=== PATIENT | female | born 1940 | race African-American/Black ===

== ENCOUNTER 2017-12-09 09:45 | Observation (INO) | payer OTHER ==
--- NOTE | 2017-12-09 10:24 | PDOC ---
History of Present Illness - General History Source: Patient Exam Limitations: No Limitations - History of Present Illness Initial Comments: 12/09/17 13:38 The patient is a 77 year old female with past medical history of hypertension, NIDDM, and hypothyroidism who presents to the ED with complaints of right sided pleuritic chest pain that began 6 days ago. The patient states that last Wednesday she had felt light headed all day and experienced a syncopal episode in her apartment elevator after grocery shopping that night. She reports waking up on the floor, half of her body inside the elevator. The neighbors reported that she was unconscious for 12 minutes and had defecated on herself. After getting up, she subsequently vomited. Denies head strike or any injury. That night she developed a right sided chest pain that has been constant since a/w SOB. She reports that the pain is sharp and is worse with deep inspiration. The patient denies any other syncopal episodes since then and denies any bilateral lower extremity swelling. The patient denies any recent illness, fevers, or chills. PCP: Malcom Rich <Alysha Parks - Last Filed: 12/09/17 15:03> <Yelena Kunz - Last Filed: 12/09/17 15:27> - General Chief Complaint: Injury Stated Complaint: BREAST PAIN, INJURY Time Seen by Provider: 12/09/17 10:09 Past History <Alysha Parks - Last Filed: 12/09/17 15:03> - Past Medical History COPD: No Diabetes: Yes (DM non insulin dependent) HTN: Yes Thyroid Disease: Yes - Surgical History Abdominal Surgery: Yes (hiatal hernia repair 2014) - Immunization History Immunization Up to Date: Yes - Suicide/Smoking/Psychosocial Hx Smoking History: Former smoker Have you smoked in the past 12 months: No If you are a former smoker, when did you quit?: 2005 Information on smoking cessation initiated: No Hx Alcohol Use: No Drug/Substance Use Hx: No Substance Use Type: None Hx Substance Use Treatment: No <Yelena Kunz - Last Filed: 12/09/17 15:27> - Past Medical History Allergies/Adverse Reactions: Allergies Allergy/AdvReac Type Severity Reaction Status Date / Time Penicillins Allergy Unknown Verified 12/09/17 09:57 Sulfa (Sulfonamide Allergy Unknown Verified 12/09/17 09:57 Antibiotics) latex Allergy Verified 12/09/17 09:57 tuberculin test Allergy Uncoded 12/09/17 09:57 Home Medications: Ambulatory Orders Amlodipine Besylate [Norvasc -] 10 mg PO DAILY 12/09/17 Benazepril HCl [LOTENSIN (Nf)] 0 mg PO DAILY 12/09/17 Levothyroxine [Synthroid -] 0 mcg PO DAILY 12/09/17 Metformin HCl [Metformin HCl ER] 1,000 mg PO BID 12/09/17 Omeprazole 40 mg PO DAILY 12/09/17 Ranitidine HCl 0 mg PO DAILY 12/09/17 Review of Systems - Review of Systems Able to Perform ROS?: Yes Comments:: 12/09/17 13:38 GENERAL/CONSTITUTIONAL: No fever or chills. No weakness. HEAD, EYES, EARS, NOSE AND THROAT: No change in vision. No ear pain or discharge. No sore throat. GASTROINTESTINAL: Present: nausea, vomiting No diarrhea or constipation. GENITOURINARY: No dysuria, frequency, or change in urination. CARDIOVASCULAR: Present: chest pain No shortness of breath. RESPIRATORY: No cough, wheezing, or hemoptysis. MUSCULOSKELETAL: No joint or muscle swelling or pain. No neck or back pain. SKIN: No rash NEUROLOGIC: Present: syncope No headache, vertigo, or change in strength/sensation. ENDOCRINE: No increased thirst. No abnormal weight change. HEMATOLOGIC/LYMPHATIC: No anemia, easy bleeding, or history of blood clots. ALLERGIC/IMMUNOLOGIC: No hives or skin allergy. All Other Systems: Reviewed and Negative <Alysha Parks - Last Filed: 12/09/17 15:03> *Physical Exam - Vital Signs Last Vital Signs Temp Pulse Resp BP Pulse Ox 98 F 90 18 137/80 99 12/09/17 09:53 12/09/17 09:53 12/09/17 09:53 12/09/17 09:53 12/09/17 09:53 - Physical Exam Comments: 12/09/17 13:39 GENERAL: Awake, alert, and fully oriented, in no acute distress HEAD: No signs of trauma EYES: PERRLA, EOMI, sclera anicteric, conjunctiva clear ENT: Auricles normal inspection, hearing grossly normal, nares patent, oropharynx clear without exudates. Moist mucosa NECK: Normal ROM, supple, no lymphadenopathy, JVD, or masses LUNGS: Breath sounds equal, clear to auscultation bilaterally. No wheezes, and no crackles HEART: Regular rate and rhythm, normal S1 and S2, no murmurs, rubs or gallops ABDOMEN: Soft, nontender, normoactive bowel sounds. No guarding, no rebound. No masses EXTREMITIES: Normal range of motion, no edema. No clubbing or cyanosis. No cords, erythema, or tenderness BACK: No midline spinal tenderness in cervical/thoracic/lumbar region NEUROLOGICAL: Normal speech, cranial nerves intact, negative pronator drift, 5/ 5 strength in all 4 extremities, normal sensation to light touch in all 4 extremities, normal cerebellar exam, normal gait, normal reflexes and tone SKIN: Warm, Dry, normal turgor, no rashes or lesions noted. <Alysha Parks - Last Filed: 12/09/17 15:03> - Vital Signs Last Vital Signs Temp Pulse Resp BP Pulse Ox 98 F 90 18 137/80 99 12/09/17 09:53 12/09/17 09:53 12/09/17 09:53 12/09/17 09:53 12/09/17 09:53 <Yelena Kunz - Last Filed: 12/09/17 15:27> Heart Score/ECG Review #1 12/09/17 15:21 Twelve-lead EKG was performed and reviewed by me. Normal sinus rhythm, rate 86. Normal axis and intervals. No ST elevations. No T-wave inversions <Yelena Kunz - Last Filed: 12/09/17 15:27> ED Treatment Course - LABORATORY CBC & Chemistry Diagram: 12/09/17 10:45 12/09/17 10:45 - ADDITIONAL ORDERS Additional order review: Laboratory Results 12/09/17 12/09/17 12/09/17 10:45 10:45 10:45 PT with INR Cancelled INR Cancelled PTT (Actin FS) Sodium Potassium Chloride Carbon Dioxide Anion Gap BUN Creatinine Creat Clearance w eGFR Random Glucose Calcium Magnesium Cancelled Total Bilirubin AST ALT Alkaline Phosphatase Troponin I Cancelled B-Natriuretic Peptide Cancelled Total Protein Albumin TSH Cancelled 12/09/17 12/09/17 10:45 10:45 PT with INR 11.30 INR 1.00 PTT (Actin FS) 29.4 Sodium 139 Potassium 3.9 Chloride 105 Carbon Dioxide 25 Anion Gap 9 BUN 15 Creatinine 1.0 Creat Clearance w eGFR 53.76 Random Glucose 134 H Calcium 9.0 Magnesium 1.4 L Total Bilirubin 0.2 AST 22 ALT 38 Alkaline Phosphatase 114 Troponin I 0.03 B-Natriuretic Peptide 47.79 Total Protein 7.9 Albumin 4.0 TSH 2.12 12/09/17 10:45 RBC 4.62 MCV 61.7 L MCHC 29.6 L RDW 19.6 H D MPV 8.8 Neutrophils % 72.6 D Lymphocytes % 16.9 D Monocytes % 8.6 Eosinophils % 1.2 Basophils % 0.7 - RADIOLOGY Radiograph Interpretation: 12/09/17 14:57 Chest X-ray as reviewed by Dr. Erickson reports no acute lung infiltrate, minimal bibasilar atelectatic changes, prominent right paratracheal stripe likely due to tortuous vessels Chest CTA as reviewed by Dr. Palma reports no definite evidence of pulmonary embolism, mild to moderate centrilobular emphysema, minimal to moderate right lower lobe interstital thickening, and thyromegaly <Alysha Parks - Last Filed: 12/09/17 15:03> - LABORATORY CBC & Chemistry Diagram: 12/09/17 10:45 12/09/17 10:45 <Yelena Kunz - Last Filed: 12/09/17 15:27> Medical Decision Making - Medical Decision Making 12/09/17 15:04 Microblog sent to [facility], awaiting for call back <Alysha Parks - Last Filed: 12/09/17 15:03> - Medical Decision Making 12/09/17 10:30 77yo F hx HTN, DM, hypothyroid presents with 2 episodes of syncope 6 days ago and progressive dyspnea and pleuritic R sided CP since. Vitals wnl. Exam wnl. DDx includes PE vs ACS vs arrhythmia. Wells score moderate. Plan: -labs -CTA -CXR -likely admit 12/09/17 15:15 CTA negative for pulmonary embolism. Troponin negative. Will admit patient for cardiac workup. Case discussed with nurse practitioner Shannen, patient accepted for admission to telemetry obs under Dr. Feliciano. Case discussed in detail with admitting physician including history, physical exam and ancillary studies. Admitting physician has assumed care for the patient, will follow all pending diagnostics and will complete the evaluation and treatment. <Yelena Kunz - Last Filed: 12/09/17 15:27> *DC/Admit/Observation/Transfer - Attestations Scribe Attestion: 12/09/17 13:39 Documentation prepared by Alysha Parks, acting as biomedical service engineer for Yelena Kunz MD. <Alysha Parks - Last Filed: 12/09/17 15:03> - Discharge Dispostion Admit: Yes - Attestations Physician Attestion: 12/09/17 15:20 I, Dr. Yelena Kunz MD, attest that this document has been prepared under my direction and personally reviewed by me in its entirety. I further attest, that it accurately reflects all work, treatment, procedures and medical decision -making performed by me. <Yelena Kunz - Last Filed: 12/09/17 15:27> Diagnosis at time of Disposition: Chest pain - Discharge Dispostion Condition at time of disposition: Stable - Referrals Referrals: Malcom Chong MD [Primary Care Provider] -
[2017-12-09 11:19] LABS: BASO % 0.7 % (0-2.0); EOS % 1.2 % (0-4.5); HEMATOCRIT 28.5 % (32.4-45.2); HEMOGLOBIN 8.4 GM/dL (10.7-15.3); LYMPH % 16.9 % (8-40); MCHC 29.6 g/dl (32.0-36.0); MEAN CELL VOLUME 61.7 fl (80-96); MEAN PLT VOLUME 8.8 fl (7.5-11.1); MONO % 8.6 % (3.8-10.2); NEUT % 72.6 % (42.8-82.8); PLATELET COUNT 303 K/MM3 (134-434); RBC 4.62 M/mm3 (3.60-5.2); RDW 19.6 % (11.6-15.6); WHITE BLOOD COUNT 9.8 K/mm3 (4.0-10.0)
[2017-12-09 11:29] LABS: ANION GAP 9 (8-16); BLOOD UREA NITROGEN 15 mg/dL (7-18); CHLORIDE 105 mmol/L (98-107); CO2 25 mmol/L (21-32); GLUCOSE,RANDOM 134 mg/dL (74-106); MAGNESIUM 1.4 mg/dL (1.8-2.4); POTASSIUM 3.9 mmol/L (3.5-5.1); SGOT/AST 22 U/L (15-37); SGPT/ALT 38 U/L (12-78); SODIUM 139 mmol/L (136-145)
[2017-12-09 11:30] LABS: MCH 18.2 pg (25.7-33.7); PROTHROMBIN TIME (PATIENT) 11.3 SEC (9.98-11.88)
[2017-12-09 11:32] LABS: ACTIVATED PTT 29.4 SECONDS (26.9-34.4)
[2017-12-09 11:38] LABS: ALK PHOS 114 U/L (45-117); BILIRUBIN,TOTAL 0.2 mg/dL (0.2-1.0); N-TERMINAL BNP 47.79 pg/ml (5-450); TOT PROT 7.9 g/dl (6.4-8.2)
[2017-12-09] MEDS ORDERED: ASPIRIN 325 MG TABLET PO ONE (14:57)
[2017-12-09] MEDS ORDERED: ASPIRIN 325 MG TABLET ONE (15:14)
[2017-12-09] MEDS ORDERED: MAGNESIUM OXIDE 400 MG TABLET (FP) PO ONE (15:24)
[2017-12-09] MEDS ORDERED: MAGNESIUM OXIDE 400 MG TABLET (FP) ONE (15:37)
--- NOTE | 2017-12-09 16:21 | EKG ---
Test Reason : Blood Pressure : / mmHG Vent. Rate : 086 BPM Atrial Rate : 086 BPM P-R Int : 154 ms QRS Dur : 084 ms QT Int : 374 ms P-R-T Axes : 059 020 041 degrees QTc Int : 447 ms NORMAL SINUS RHYTHM NORMAL ECG WHEN COMPARED WITH ECG OF 27-JUL-2013 03:09, NONSPECIFIC T WAVE ABNORMALITY NOW EVIDENT IN ANTERIOR LEADS Confirmed by LAUREN MONTOYA MD ([id number]) on 12/09/2017 4:21:33 PM Referred By: Confirmed By:ALUREN MONTOYA MD
--- NOTE | 2017-12-09 16:47 | HP ---
CHIEF COMPLAINT: Right sided chest pain after syncopal episode PCP: Dr. Chong HISTORY OF PRESENT ILLNESS: This is a 77 year old female with PMHx of DM, hypothyroidism, HTN, who presented to the ED with right sided chest pain after syncopal episode on Wednesday. The patient reports on Wednesday she was walking home from the grocery store and lost consciousness while in the elevator for approximately 12 minutes. When she awoke she noticed that she had lost bowel control. The episode was unwitnessed. She then states she lost consciousness again and then when she awoke she vomited. She states that there was no confusion once she woke up. She states in the past she has had near syncopal episode but has never lost consciousness. She states that the right sided chest pain is because she thinks the elevator door closed on her chest while she was passed out. She states the chest pain is worse with breathing and that when you touch her sternum it is painful. She denies any palpitations, dizziness, headache, dysuria , urgency, frequency, lower extremity swelling, shortness of breath. ER course was notable for: (1) Temp 98, pulse 90, BP 137/80, pulse 18, O2 99% on RA (2) Chest CTA with no definite evidence of PE. Centrilobular emphysema. Minimal to mild right lower lobe interstitial thickening. Thyroidmegaly (3) Chest X-ray with no acute lung infiltrate, minimal bibasilar atelectatic changes. Prominent right paratracheal stripe (4) Hgb 8.4, Mg 1.4 Recent Travel: denies PAST MEDICAL HISTORY: as above PAST SURGICAL HISTORY: hiatal hernia repair 2.5 years ago Social History: Smoking: denies Alcohol: denies Drugs: denies Family History: Allergies Penicillins Allergy (Unknown, Verified 12/09/17 09:57) Sulfa (Sulfonamide Antibiotics) Allergy (Unknown, Verified 12/09/17 09:57) latex Allergy (Verified 12/09/17 09:57) tuberculin test Allergy (Uncoded 12/09/17 09:57) HOME MEDICATIONS: Home Medications Medication Instructions Recorded Amlodipine Besylate [Norvasc -] 10 mg PO DAILY 12/09/17 Benazepril HCl [LOTENSIN (Nf)] 0 mg PO DAILY 12/09/17 Levothyroxine [Synthroid -] 0 mcg PO DAILY 12/09/17 Metformin HCl [Metformin HCl ER] 1,000 mg PO BID 12/09/17 Omeprazole 40 mg PO DAILY 12/09/17 Ranitidine HCl 0 mg PO DAILY 12/09/17 REVIEW OF SYSTEMS CONSTITUTIONAL: Absent: fever, chills, diaphoresis, generalized weakness, malaise, loss of appetite, weight change HEENT: Absent: rhinorrhea, nasal congestion, throat pain, throat swelling, difficulty swallowing, mouth swelling, ear pain, eye pain, visual changes CARDIOVASCULAR: Right sided chest pain. Loss of consciousness on Wednesday with loss of bowel continence. Unwitnessed LOC lasting approximately 12 minutes. Absent: chest pain, palpitations, irregular heart rate, peripheral edema RESPIRATORY: Absent: cough, shortness of breath, dyspnea with exertion, orthopnea, wheezing, stridor, hemoptysis GASTROINTESTINAL: Absent: abdominal pain, abdominal distension, nausea, vomiting, diarrhea, constipation, melena, hematochezia GENITOURINARY: Absent: dysuria, frequency, urgency, hesitancy, hematuria, flank pain, genital pain MUSCULOSKELETAL: Absent: myalgia, arthralgia, joint swelling, back pain, neck pain SKIN: Absent: rash, itching, pallor HEMATOLOGIC/IMMUNOLOGIC: Absent: easy bleeding, easy bruising, lymphadenopathy, frequent infections ENDOCRINE: Absent: unexplained weight gain, unexplained weight loss, heat intolerance, cold intolerance NEUROLOGIC: Absent: headache, focal weakness or paresthesias, dizziness, unsteady gait, seizure, mental status changes, bladder or bowel incontinence PSYCHIATRIC: Absent: anxiety, depression, suicidal or homicidal ideation, hallucinations. PHYSICAL EXAMINATION Vital Signs - 24 hr 12/09/17 12/09/17 09:53 14:38 Temperature 98 F Pulse Rate 90 Pulse Rate [ 98 H Apical] Respiratory 18 18 Rate Blood Pressure 137/80 Blood Pressure 129/73 [Right Arm] O2 Sat by Pulse 99 98 Oximetry (%) GENERAL: Awake, alert, and fully oriented, in no acute distress. HEAD: Normal with no signs of trauma. EYES: Pupils equal, round and reactive to light, extraocular movements intact, sclera anicteric, conjunctiva clear. No lid lag. EARS, NOSE, THROAT: Ears normal, nares patent, oropharynx clear without exudates. Moist mucous membranes. NECK: Normal range of motion, supple without lymphadenopathy, JVD, or masses. LUNGS: Breath sounds equal, clear to auscultation bilaterally. No wheezes, and no crackles. No accessory muscle use. HEART: Regular rate and rhythm, normal S1 and S2 without murmur, rub or gallop. ABDOMEN: Soft, nontender, not distended, normoactive bowel sounds, no guarding, no rebound, no masses. No hepatomegaly or splenomegaly. MUSCULOSKELETAL: Normal range of motion at all joints. No bony deformities or tenderness. No CVA tenderness. UPPER EXTREMITIES: 2+ pulses, warm, well-perfused. No cyanosis. No clubbing. No peripheral edema. LOWER EXTREMITIES: 2+ pulses, warm, well-perfused. No calf tenderness. No peripheral edema. NEUROLOGICAL: Cranial nerves II-XII intact. Normal speech. PSYCHIATRIC: Cooperative. Good eye contact. Appropriate mood and affect. SKIN: Warm, dry, normal turgor, no rashes or lesions noted, normal capillary refill. Laboratory Results - last 24 hr 12/09/17 12/09/17 12/09/17 10:45 10:45 10:45 WBC 9.8 D RBC 4.62 Hgb 8.4 L D Hct 28.5 L D MCV 61.7 L MCH 18.2 L MCHC 29.6 L RDW 19.6 H D Plt Count 303 MPV 8.8 Neutrophils % 72.6 D Lymphocytes % 16.9 D Monocytes % 8.6 Eosinophils % 1.2 Basophils % 0.7 PT with INR 11.30 INR 1.00 PTT (Actin FS) 29.4 Sodium 139 Potassium 3.9 Chloride 105 Carbon Dioxide 25 Anion Gap 9 BUN 15 Creatinine 1.0 Creat Clearance w eGFR 53.76 Random Glucose 134 H Calcium 9.0 Magnesium 1.4 L Total Bilirubin 0.2 AST 22 ALT 38 Alkaline Phosphatase 114 Troponin I 0.03 B-Natriuretic Peptide 47.79 Total Protein 7.9 Albumin 4.0 TSH 2.12 12/09/17 12/09/17 12/09/17 10:45 10:45 10:45 WBC RBC Hgb Hct MCV MCH MCHC RDW Plt Count MPV Neutrophils % Lymphocytes % Monocytes % Eosinophils % Basophils % PT with INR Cancelled INR Cancelled PTT (Actin FS) Sodium Potassium Chloride Carbon Dioxide Anion Gap BUN Creatinine Creat Clearance w eGFR Random Glucose Calcium Magnesium Cancelled Total Bilirubin AST ALT Alkaline Phosphatase Troponin I Cancelled B-Natriuretic Peptide Cancelled Total Protein Albumin TSH Cancelled Assessment: This is a 77 year old female with PMHx of DM, hypothyroidism, HTN, who presented to the ED with right sided chest pain after syncopal episode on Wednesday. Plan: 1) Loss of consciousness - Patient reports it was approximately 12 minutes and was unwitnessed. No prodrome or post ictal state. Bowel incontinence occurred - Cardiac monitoring - F/u ECHO - F/u carotid dopplers - F/u orthostatics - Head CT vs. MRI, will defer to neurology - F/u cardiology consult 2) Atypical right sided chest pain - Follow trops to r/o ACS - EKG reviewed - F/u lipid panel 3) Hypothyroidism - F/u TSH - Need to verify dosing 4) DM - BGM ACHS - ISS ACHS 5) HTN - Continue Norvasc 6) F/E/N: - Diabetic, sodium controlled diet - Monitor electrolytes 7) Prophylaxis: - OOB ambulating - SCDs bilaterally 8) Dispo: - Once condition improves CODE STATUS: FULL CODE Visit type - Emergency Visit Emergency Visit: Yes ED Registration Date: 12/09/17 Care time: The patient presented to the Emergency Department on the above date and was hospitalized for further evaluation of their emergent condition. - New Patient This patient is new to me today: Yes Date on this admission: 12/09/17 - Critical Care Critical Care patient: No Hospitalist Screening - Colonoscopy Questionnaire Colonoscopy Questionnaire: Colonoscopy Questionnaire - Patient: 50 - 75 years old and never had a screening colonoscopy: Unknown History of colon or rectal polyps, or CA: Unknown History of IBD, Crohn's disease or UC: Unknown History of abdominal radiation therapy as a child: Unknown - Relative: 1 with colon or rectal CA, or polyps at age 60 or younger: Unknown Colon or rectal CA diagnosed at age 45 or younger: Unknown Multiple relatives with colon or rectal CA: Unknown - Outcome: Screening Result: Negative Screen
--- NOTE | 2017-12-09 17:52 | CON.CARD ---
Cardiology Consult (text) - Consultation Consultation Note: CC syncope/cp 77 yo with h/o hypertension, NIDDM, and hypothyroidism who p/w right sided CP after an episode of syncope last week. States she intermittently has sx's of lightheadedness but has never passed out. 1 week ago she felt lightheaded all day and had to rest most of the day. In the evening she finally felt well enough to go to the supermarket. Once there she had worsening of dizziness. On arriving home and moving her groceries into the elevator she had severe lightheadedness and passed out falling half way out of the elevator. She states that the elevator door closed on the right side of her torso and since then she has had worsening pain on the right side. Prior to the day of her syncope she was in her usual state of health. After the syncope she broke out into a sweat and vomited. Since then she has not had a recurrence of lightheadedness. Her lightheadedness was associated with sob, but no other symptoms. She does not check her bp's at home. She endorses chronic leong with walking 20 feet, stable over the past year. She states her leong started a few years ago after her hernia repair surgery. No orthopnea, pnd, palps, le edema, claudication, bleeding no fevers, chills, diarrhea, cough, congestion, rash, visual distubances. Hospital course notable for new anemia and magensium of 1.4. pmhx/pshx: per hpi family hx: son with hx of rheumatic fever c/b valvular disease. social hx: former smoker, no etoh ros: per hpi Ambulatory Orders Amlodipine Besylate [Norvasc -] 10 mg PO DAILY 12/09/17 Benazepril HCl [LOTENSIN (Nf)] 0 mg PO DAILY 12/09/17 Levothyroxine [Synthroid -] 0 mcg PO DAILY 12/09/17 Metformin HCl [Metformin HCl ER] 1,000 mg PO BID 12/09/17 Omeprazole 40 mg PO DAILY 12/09/17 Ranitidine HCl 0 mg PO DAILY 12/09/17 Current Medications Amlodipine Besylate (Norvasc -) 10 mg PO DAILY KATHIE Insulin Aspart (Novolog Vial Sliding Scale -) 1 vial SQ ACHS [facility] PRN Reason: Protocol Vital Signs - 24 hr 12/09/17 12/09/17 09:53 14:38 Temperature 98 F Pulse Rate 90 Pulse Rate [ 98 H Apical] Respiratory 18 18 Rate Blood Pressure 137/80 Blood Pressure 129/73 [Right Arm] O2 Sat by Pulse 99 98 Oximetry (%) Intake & Output 12/07/17 12/08/17 12/09/17 12/10/17 07:59 07:59 07:59 07:59 Weight 175 lb nad, calm jvd flat, neck supple ctab, nl effort + ttp of right lower chest wall/rib cage. rrr nl s1, s2 no mrg + bs soft nt nd ext without e/c/c + dp/pt aaox3 no jaundice, diaphoresis. CBC, BMP 12/09/17 10:45 12/09/17 10:45 Laboratory Tests 12/09/17 12/09/17 10:45 10:45 INR 1.00 Troponin I 0.03 ekg: wnl cta: No PE proximally. + centrilobular emphysema (mild-moderate). minimal RLL interstitial thickening 77 yo with h/o hypertension, NIDDM, and hypothyroidism who p/w right sided CP after an episode of syncope last week. right sided cp - likely msk after injury to that area from fall/elevator door. Further eval/ mgm't per pmd syncope - tele monitoring - con't leeanna - echo and stress testing. - carotid u/s - tsh - orthostatic vitals - bp well controlled so far off norvasc, will hold for now. consider resuming at lower dose after stress testing if needed. htn - as above.
[2017-12-09 20:54] LABS: URINE APPEARANCE CLEAR; URINE BILIRUBIN NEGATIVE (<2.0 mg/dL); URINE BLOOD NEGATIVE (NEGATIVE); URINE COLOR LTYELLOW; URINE GLUCOSE (UA) NEGATIVE (NEGATIVE); URINE KETONE NEGATIVE (NEGATIVE); URINE NITRITE POSITIVE (NEGATIVE); URINE PROTEIN NEGATIVE (NEGATIVE); URINE UROBILINOGEN NEGATIVE mg/dL (0.2-1.0)
[2017-12-09 21:00] LABS: URINE LEUK ESTERASE 2+ (NEGATIVE)
[2017-12-09 21:05] LABS: EPI CELLS RARE /HPF (FEW); URINE MUCUS RARE
[2017-12-09] MEDS ORDERED: INSULIN (NOVOLOG) ASPART 100 UNITS/ML 10ML VIAL ONE (21:13)
[2017-12-09] MEDS: INSULIN SLIDING SCALE (NOVOLOG) 1 VIAL SQ SCH (21:56)
[2017-12-09] MEDS ORDERED: MAGNESIUM SULF 50% (8.12 MEQ/2 ML-1 GM VIAL) IVPB ONE (22:00)
[2017-12-10 01:04] VITALS: BMI 32.6
[2017-12-10 07:01] LABS: HEMATOCRIT 28.4 % (32.4-45.2); HEMOGLOBIN 8.6 GM/dL (10.7-15.3); MCHC 30.1 g/dl (32.0-36.0); MEAN CELL VOLUME 61.8 fl (80-96); MEAN PLT VOLUME 8.8 fl (7.5-11.1); PLATELET COUNT 337 K/MM3 (134-434); RDW 19.2 % (11.6-15.6); WHITE BLOOD COUNT 8.3 K/mm3 (4.0-10.0)
[2017-12-10 07:10] LABS: ANION GAP 10 (8-16); BLOOD UREA NITROGEN 15 mg/dL (7-18); CALCIUM 9.3 mg/dL (8.5-10.1); CHLORIDE 104 mmol/L (98-107); CO2 25 mmol/L (21-32); CREATININE 0.8 mg/dL (0.55-1.02); GLUCOSE,RANDOM 174 mg/dL (74-106); POTASSIUM 4.3 mmol/L (3.5-5.1); SGOT/AST 24 U/L (15-37); SGPT/ALT 37 U/L (12-78); SODIUM 139 mmol/L (136-145)
[2017-12-10 07:13] LABS: ALK PHOS 113 U/L (45-117); BILIRUBIN,TOTAL 0.2 mg/dL (0.2-1.0); TOT PROT 7.7 g/dl (6.4-8.2)
[2017-12-10 07:24] LABS: ADD RBC MORPHOLOGY YES; MCH 18.6 pg (25.7-33.7)
[2017-12-10 07:30] LABS: ANISOCYTOSIS 1+
[2017-12-10] MEDS ORDERED: REGADENOSON 0.4 MG/5 ML PRE-FILLED SYRINGE IVPUSH ONE ×2 (09:15→12:45)
[2017-12-10] MEDS ORDERED: amLODIPine BESYLATE 10 MG TABLET (FP) PO SCH (10:00)
[2017-12-10] MEDS: INSULIN SLIDING SCALE (NOVOLOG) 1 VIAL SQ SCH ×4 (11:16→21:03)
--- NOTE | 2017-12-10 13:35 | PN ---
Progress Note (short form) - Note Progress Note: Subjective: The patient was seen and examined at the bedside, she has no complaints at this time Current Medications Generic Name Dose Route Start Last Admin Trade Name Kylie PRN Reason Stop Dose Admin Insulin Aspart 1 vial 12/09/17 22:00 12/10/17 11:16 Novolog Vial Sliding Scale - SQ Not Given ACHS KATHIE Protocol Objective: Vital Signs Period Temp Pulse Resp BP Sys/Garza Pulse Ox Last 24 Hr 97.9 F-98.7 F 78-98 16-22 126-150/68-91 94-98 Physical Exam: General: NAD, A&Ox3 Lungs: CTA bilaterally Heart: RRR, S1S2 Abd: Soft, non-tender, non-distended Ext: Warm, well-perfused 2+ DP/PT bilaterally Neuro: No focal deficits CBCD WBC 8.3 K/mm3 (4.0-10.0) 12/10/17 06:15 RBC 4.60 M/mm3 (3.60-5.2) 12/10/17 06:15 Hgb 8.6 GM/dL (10.7-15.3) L 12/10/17 06:15 Hct 28.4 % (32.4-45.2) L 12/10/17 06:15 MCV 61.8 fl (80-96) L 12/10/17 06:15 MCHC 30.1 g/dl (32.0-36.0) L 12/10/17 06:15 RDW 19.2 % (11.6-15.6) H 12/10/17 06:15 Plt Count 337 K/MM3 (134-434) 12/10/17 06:15 MPV 8.8 fl (7.5-11.1) 12/10/17 06:15 CMP Sodium 139 mmol/L (136-145) 12/10/17 06:15 Potassium 4.3 mmol/L (3.5-5.1) 12/10/17 06:15 Chloride 104 mmol/L (98-107) 12/10/17 06:15 Carbon Dioxide 25 mmol/L (21-32) 12/10/17 06:15 Anion Gap 10 (8-16) 12/10/17 06:15 BUN 15 mg/dL (7-18) 12/10/17 06:15 Creatinine 0.8 mg/dL (0.55-1.02) 12/10/17 06:15 Creat Clearance w eGFR > 60 (>60) 12/10/17 06:15 Random Glucose 174 mg/dL (74-106) H 12/10/17 06:15 Calcium 9.3 mg/dL (8.5-10.1) 12/10/17 06:15 Total Bilirubin 0.2 mg/dL (0.2-1.0) 12/10/17 06:15 AST 24 U/L (15-37) 12/10/17 06:15 ALT 37 U/L (12-78) 12/10/17 06:15 Alkaline Phosphatase 113 U/L (45-117) 12/10/17 06:15 Total Protein 7.7 g/dl (6.4-8.2) 12/10/17 06:15 Albumin 4.0 g/dl (3.4-5.0) 12/10/17 06:15 CARDIAC ENZYMES Creatine Kinase 86 IU/L (26-192) 12/10/17 06:15 Troponin I 0.02 ng/ml (0.00-0.05) 12/10/17 06:15 Assessment: This is a 77 year old female with PMHx of DM, hypothyroidism, HTN, who presented to the ED with right sided chest pain after syncopal episode on Wednesday. Plan: 1) Loss of consciousness - Patient reports it was approximately 12 minutes and was unwitnessed. No prodrome or post ictal state. Bowel incontinence occurred - Cardiac monitoring - F/u ECHO - F/u stress test - Carotid dopplers: There is mild intimal thickening in the distal common carotid artery and at the bifurcation, bilaterally. Small plaques at the left common carotid bifucation and bulb without evidence of hemodynamically significant stenosis, bilaterally - F/u orthostatics - Head CT vs. MRI, will defer to neurology - Appreciate cardiology consult 2) Atypical right sided chest pain - Trop x4 negative - EKG reviewed - Lipid panel reviewed 3) Anemia - Spoke to Dr. Chong's office, patient's Hgb baseline since 2017 was ~9 - F/u iron studies - F/u stool for occult blood 3) Hypothyroidism - TSH 4 - Patient cannot recall dosing or pharmacy. Awaiting call back from Dr. Chong's office 4) DM - BGM ACHS - ISS ACHS 5) HTN - Continue Norvasc 6) F/E/N: - Diabetic, sodium controlled diet - Monitor electrolytes 7) Prophylaxis: - OOB ambulating - SCDs bilaterally 8) Dispo: - Once condition improves CODE STATUS: FULL CODE Visit type - Emergency Visit Emergency Visit: Yes ED Registration Date: 12/09/17 Care time: The patient presented to the Emergency Department on the above date and was hospitalized for further evaluation of their emergent condition. - New Patient This patient is new to me today: No - Critical Care Critical Care patient: No
--- NOTE | 2017-12-10 15:30 | PN ---
Progress Note (short form) - Note Progress Note: CC syncope/cp S: had stress test and echo today. no recurrence of dizziness. no cp, palps, dizziness. Current Medications Insulin Aspart (Novolog Vial Sliding Scale -) 1 vial SQ ACHS KATHIE PRN Reason: Protocol Last Admin: 12/10/17 11:16 Dose: Not Given Vital Signs - 24 hr 12/09/17 12/09/17 12/09/17 17:30 18:50 20:46 Temperature 98.7 F Pulse Rate 78 Pulse Rate [ 92 H Apical] Pulse Rate [ Left side Sitting] Pulse Rate [ Left side Standing] Pulse Rate [ Left side Supine] Respiratory 16 22 Rate Blood Pressure 150/78 Blood Pressure [Left side Sitting] Blood Pressure [Left side Standing] Blood Pressure [Left side Supine] Blood Pressure 137/68 [Right Arm] O2 Sat by Pulse 96 94 L Oximetry (%) 12/09/17 12/09/17 12/09/17 20:54 20:55 20:56 Temperature 98.6 F 98.6 F Pulse Rate 87 87 Pulse Rate [ Apical] Pulse Rate [ Left side Sitting] Pulse Rate [ Left side Standing] Pulse Rate [ Left side Supine] Respiratory 18 18 18 Rate Blood Pressure 126/70 126/70 Blood Pressure [Left side Sitting] Blood Pressure [Left side Standing] Blood Pressure [Left side Supine] Blood Pressure [Right Arm] O2 Sat by Pulse 94 L Oximetry (%) 12/10/17 12/10/17 12/10/17 02:00 05:21 08:00 Temperature 98.3 F 98.1 F Pulse Rate 87 88 Pulse Rate [ Apical] Pulse Rate [ Left side Sitting] Pulse Rate [ Left side Standing] Pulse Rate [ Left side Supine] Respiratory 18 18 16 Rate Blood Pressure 130/72 139/70 Blood Pressure [Left side Sitting] Blood Pressure [Left side Standing] Blood Pressure [Left side Supine] Blood Pressure [Right Arm] O2 Sat by Pulse 95 Oximetry (%) 12/10/17 12/10/17 08:27 14:34 Temperature 97.9 F Pulse Rate 83 Pulse Rate [ Apical] Pulse Rate [ 99 H Left side Sitting] Pulse Rate [ 100 H Left side Standing] Pulse Rate [ 96 H Left side Supine] Respiratory 16 Rate Blood Pressure 126/91 Blood Pressure 132/74 [Left side Sitting] Blood Pressure 130/77 [Left side Standing] Blood Pressure 129/79 [Left side Supine] Blood Pressure [Right Arm] O2 Sat by Pulse Oximetry (%) Intake & Output 12/08/17 12/09/17 12/10/17 12/11/17 07:59 07:59 07:59 07:59 Intake Total 470 Balance 470 Weight 178 lb 6 oz nad, calm jvd flat, neck supple ctab, nl effort + ttp of right lower chest wall/rib cage. rrr nl s1, s2 no mrg + bs soft nt nd ext without e/c/c + dp/pt aaox3 no jaundice, diaphoresis. CBC, BMP 12/10/17 06:15 12/10/17 06:15 Laboratory Tests 12/09/17 12/09/17 12/10/17 22:00 22:00 06:15 Magnesium Total Bilirubin 0.2 AST 24 ALT 37 Alkaline Phosphatase 113 Creatine Kinase 79 Troponin I 0.03 0.02 Albumin 4.0 Triglycerides Cholesterol Total LDL Cholesterol HDL Cholesterol TSH 12/10/17 12/10/17 12/10/17 06:15 06:15 06:15 Magnesium 2.0 Total Bilirubin AST ALT Alkaline Phosphatase Creatine Kinase 86 Troponin I 0.02 Albumin Triglycerides 98 Cholesterol 125 Total LDL Cholesterol 76 HDL Cholesterol 43 TSH 4.06 H ekg: wnl tele: sr javier stress 12/2017: no ekg changes. moderate sized mild intensity ischemia in the inferior wall. EF 80%. echo 12/2017: nl lv/rv size/fn. basal septal hypertrophy. (no mention of LVOT obstruction). E/A reversal. 1+ mr/tr. carotid u/s: small plaque, no stenosis. nl verts cta: No PE proximally. + centrilobular emphysema (mild-moderate). minimal RLL interstitial thickening ASSESSMENT/PLAN 77 yo with h/o hypertension, NIDDM, and hypothyroidism who p/w right sided CP after an episode of syncope last week. right sided cp - likely msk after injury to that area from fall/elevator door. Further eval/ mgm't per pmd syncope - tele monitoring - trop neg x 3. ekg without ischemic changes. Echo with nl systolic function. - stress testing demonstrated moderate sized area of mild ischemia in the inferior wall. To cause syncope, would typically need more high risk/extensive ischemia than demonstrated. In light of low suspicion and new anemia, would further clarify etiology of anemia prior to pursuing cardiac catheterization. Would start low dose asa. LDL close to goal at 76. statin resumed at low dose since statin not originally listed on home med list, but patient states today that she was on simvastatin 40 mg/day. Will increase atorvastatin dose to atorvastatin 20. - carotid u/s unremarkable. neuro c/s pending. - tsh mildly elevated. - orthostatic vitals negative. - sbp 150's during stress, but otherwise overall well controlled off norvasc. HR's elevated. Will start metoprolol instead of prior outpatient norvasc. monitor for worsened sob/bronchospasm on toprol. htn - as above. - additionally, patient states she was also on benazepril 40 mg/day as outpatient. will resume low dose ACEI tomorrow.
[2017-12-10] MEDS: metoPROLOL SUCCINATE 25 MG TAB.SR.24H (FP) PO SCH (17:00)
[2017-12-10] MEDS ORDERED: ATORVASTATIN CA 10 MG TABLET (FP) PO SCH (22:00)
[2017-12-11] MEDS: INSULIN SLIDING SCALE (NOVOLOG) 1 VIAL SQ SCH ×4 (06:31→21:58)
[2017-12-11] MEDS: ASPIRIN 81 MG CHEWABLE TABLETS PO SCH (09:20)
[2017-12-11] MEDS: metoPROLOL SUCCINATE 25 MG TAB.SR.24H (FP) PO SCH ×2 (09:20→21:58)
--- NOTE | 2017-12-11 15:19 | CONSULT ---
Consult - text type - Consultation Consultation Note: NEUROLOGY CONSULTATION is greatly appreciated: This 77 yo RH div. woman lives alone. Her son lives nearby. PMH sig for DM (>10 yrs), HTN, hypothroidism and anemia. Maintained on amlodipine, benazapril, L-thyroxin, metformin, omeprazole, ranitidine, and atorvastatin. 8 days ago (last Wednesday), patient took her AM meds but felt unwell with waxing and waning lightheadedness, weakness and nausea. She has felt this way, episodically, in the past. She did not feel well enought to eat lunch or dinner. In the evening she felt a little better and went food shopping. In the grocery store she had recurrent dizziness, blurred vision and began to sweat. She drove home but symptoms worsened and she "prayed she would make it." In the elevator dizziness and sweating worsened and she loss consciousness. Witnesses found her seizing, half in and half out of the elevator with the door opening and closing repeatedly on her right chest. Incontinent of feces. LOC x > 10 mins. Her son was called and Pt was taken to sit on a step where dizziness and sweating again worsened +/- recurrent syncope. She felt a little better and eating and sleeping. However, since then, she has had right chest pains. Carotid duplex dopplers: scattered calcifications without sig. stenosis. CT of head not done. CT angio of chest - for PE. C XRay - for rib fracture. SHANTANU:: No evidence of head trauma. No bruits. Cor reg. On telemetry. NEURO: MS/speech: Normal CN II-XII: normal without nystagmus. Motor: No drift or tremor. Normal strength, tone, buld and reflexes. Toes downgoing. Coord: No FTN dystaxia Sensory normal. Romberg neg Gait: Normal. IMP: Normal Neurological Exam. Seizure due to Toxic-metabolic encephalopathy. Etology most likely prolonged hypoglycemia. SUGGEST: Agree with telemetry and cardiology evaluation as outlined. Check orthostatic BP's. Diabetes education for home BG Monitoring (Pt does NOT do). Neuro f/u and EEG as out patient. Would observe off AED's at the time. Thank you very much, Enoc Galdamez MD
--- NOTE | 2017-12-11 16:07 | PN ---
Progress Note (short form) - Note Progress Note: C syncope/cp S: no recurrence of dizziness. no cp, palps, dizziness. metoprolol started yesterday. Current Medications Aspirin (Asa -) 81 mg PO DAILY [facility] Last Admin: 12/11/17 09:20 Dose: 81 mg Atorvastatin Calcium (Lipitor -) 20 mg PO HS [facility] Insulin Aspart (Novolog Vial Sliding Scale -) 1 vial SQ ACHS [facility] PRN Reason: Protocol Last Admin: 12/11/17 11:00 Dose: Not Given Lisinopril (Prinivil) 5 mg PO DAILY [facility] Metoprolol Succinate (Toprol Xl -) 25 mg PO BID [facility] Vital Signs - 24 hr 12/10/17 12/10/17 12/11/17 18:00 19:49 02:00 Temperature 98.3 F 98.3 F 98.2 F Pulse Rate 90 90 82 Respiratory 18 18 20 Rate Blood Pressure 132/60 150/77 148/74 O2 Sat by Pulse 95 Oximetry (%) 12/11/17 12/11/17 12/11/17 05:06 10:00 14:00 Temperature 98.2 F 98 F 99.6 F Pulse Rate 81 84 89 Respiratory 18 20 20 Rate Blood Pressure 147/86 135/80 144/72 O2 Sat by Pulse Oximetry (%) Intake & Output 12/09/17 12/10/17 12/11/17 12/12/17 07:59 07:59 07:59 07:59 Intake Total 470 10 Balance 470 10 Weight 178 lb 6 oz nad, calm jvd flat, neck supple ctab, nl effort + ttp of right lower chest wall/rib cage. rrr nl s1, s2 no mrg + bs soft nt nd ext without e/c/c + dp/pt aaox3 no jaundice, diaphoresis. no CBC, BMP today 12/10/17 06:15 12/10/17 06:15 Microbiology 12/09/17 20:00 Urine - Urine Clean Catch Urine Culture - Preliminary Lactose Fermenting Neg Bacilli Laboratory Tests 12/09/17 12/10/17 10:45 06:15 TSH 2.12 4.06 H ekg: wnl tele: sr javier stress 12/2017: no ekg changes. moderate sized mild intensity ischemia in the inferior wall. EF 80%. echo 12/2017: nl lv/rv size/fn. basal septal hypertrophy. (no mention of LVOT obstruction). E/A reversal. 1+ mr/tr. carotid u/s: small plaque, no stenosis. nl verts cta: No PE proximally. + centrilobular emphysema (mild-moderate). minimal RLL interstitial thickening ASSESSMENT/PLAN 77 yo with h/o hypertension, hl, NIDDM, and hypothyroidism who p/w right sided CP after an episode of syncope last week. right sided cp - likely msk after injury to that area from fall/elevator door. Further eval/ mgm't per pmd syncope/cad - tele monitoring - trop neg x 3. ekg without ischemic changes. Echo with nl systolic function. - stress testing demonstrated moderate sized area of mild ischemia in the inferior wall. To cause syncope, would typically need more high risk/extensive ischemia than demonstrated. In light of low suspicion and new anemia, would further clarify etiology of anemia prior to pursuing cardiac catheterization. Started low dose asa here. LDL close to goal at 76. Patient was on simvastatin 40 mg/day as outpatient. No simva on formulary, started atorvastatin 20 here. Started toprol here as mentioned below, uptitrate to goal HR 60s-70s (will increase to 25 bid). - carotid u/s unremarkable. neuro c/s appreciated - tsh as above. infectious work up per pmd. - orthostatic vitals negative. htn - on norvasc as outpatient. HR's elevated. Started metoprolol here instead of prior outpatient norvasc. monitor for worsened sob/bronchospasm on toprol. - additionally, patient states she was also on benazepril 40 mg/day as outpatient (not on formulary). resumed lisinopril 5 mg/day today, uptitrate as needed.
--- NOTE | 2017-12-11 16:11 | PN ---
Physical Exam: SUBJECTIVE: Patient seen and examined at the bedside. Denies chest pain or shortness of breath. OBJECTIVE: Vital Signs Period Temp Pulse Resp BP Sys/Garza Pulse Ox Last 24 Hr 98 F-99.6 F 81-90 18-20 132-150/60-86 95 GENERAL: The patient is awake, alert, and fully oriented, in no acute distress. HEAD: Normal with no signs of trauma. EYES: PERRL, extraocular movements intact, sclera anicteric, conjunctiva clear. No ptosis. ENT: Ears normal, nares patent, oropharynx clear without exudates, moist mucous membranes. NECK: Trachea midline, full range of motion, supple. LUNGS: Breath sounds equal, diminished/clear bilaterally ABDOMEN: Soft, nontender, nondistended, normoactive bowel sounds, no guarding EXTREMITIES: no edema. NEUROLOGICAL: Normal speech, gait not observed. PSYCH: Normal mood, normal affect. SKIN: Warm, dry, normal turgor, no rashes or lesions noted Laboratory Results - last 24 hr 12/10/17 12/10/17 12/11/17 17:02 21:00 05:00 POC Glucometer 289 200 Ferritin 6.714 L 12/11/17 12/11/17 05:04 11:08 POC Glucometer 156 185 Ferritin Active Medications Generic Name Dose Route Start Last Admin Trade Name Freq PRN Reason Stop Dose Admin Aspirin 81 mg 12/11/17 10:00 12/11/17 09:20 Asa - PO 81 mg DAILY KATHIE Administration Atorvastatin Calcium 20 mg 12/11/17 22:00 Lipitor - PO HS [facility] Insulin Aspart 1 vial 12/09/17 22:00 12/11/17 11:00 Novolog Vial Sliding Scale - SQ Not Given [facility] Protocol Lisinopril 5 mg 12/11/17 16:15 Prinivil PO DAILY [facility] Metoprolol Succinate 25 mg 12/11/17 22:00 Toprol Xl - PO BID [facility] ASSESSMENT/PLAN: Patient is a 77 year old female with a significant past medical history of diabetes mellitus (on Metformin), hypothyroidism and hypertension. She presents to the ED on 12/09/17 with chest pain after a syncopal episode. As per admitting notes, pt had a syncopal episode with LOC accompanied by loss of bowel continence. She developed CP after an elevator door reportedly hit her chest when she passed out. Neuro: Syncope/with reported loss of consciousness Echo Stress test Carotid dopplers shows mild intimal thickening in the distal common carotid artery and at the bifurcation, bilaterally. Small plaques at the left common carotid bifucation and bulb without evidence of hemodynamically significant stenosis, bilaterally Not orthostatics EEG as an outpatient as per neuro (Dr. Galdamez) Card: Chest pain, resolved Trops negative : UTI Started on Levaquin 500mg for 7 days f/u repeat UC with PCP Heme Iron studies pending Microcytic Anemia hmg low from reported baseline Endo: Hypothyroidism TSH mildly elevated, will confirm dose with her PCP Diabetes, will need glucometer for suspected hypoglycemic episodes at home Card: Hypertension: On Toprol XL 25mg, BID, Lisinopril 5mg daily On ASA 81mg F.E.N. Fluids: PO adequate Electrolytes: monitor Nutrition: low salt diet Prophy: DVT: SCDs, GI: Zantac Full code Visit type - Emergency Visit Emergency Visit: Yes ED Registration Date: 12/09/17 Care time: The patient presented to the Emergency Department on the above date and was hospitalized for further evaluation of their emergent condition. - New Patient This patient is new to me today: Yes Date on this admission: 12/12/17 - Critical Care Critical Care patient: No - Discharge Referral Referred to [facility] Med P.C.: No
[2017-12-11] MEDS: LISINOPRIL 5 MG TABLET (FP) PO SCH (17:43)
[2017-12-11] MEDS ORDERED: RANITIDINE HCL 150 MG TABLET (FP) PO ONE (21:00)
[2017-12-11] MEDS: ATORVASTATIN CA 10 MG TABLET (FP) PO SCH (21:58)
[2017-12-11] MEDS: RANITIDINE HCL 150 MG TABLET (FP) PO SCH (22:04)
[2017-12-12] MEDS: INSULIN SLIDING SCALE (NOVOLOG) 1 VIAL SQ SCH ×4 (07:02→21:00)
[2017-12-12 08:04] LABS: ANION GAP 7 (8-16); BLOOD UREA NITROGEN 13 mg/dL (7-18); CALCIUM 8.9 mg/dL (8.5-10.1); CHLORIDE 105 mmol/L (98-107); CO2 26 mmol/L (21-32); CREATININE 0.7 mg/dL (0.55-1.02); GLUCOSE,RANDOM 177 mg/dL (74-106); POTASSIUM 3.7 mmol/L (3.5-5.1); SODIUM 138 mmol/L (136-145)
[2017-12-12 08:08] LABS: SERUM IRON SATURATION 4 % (15-55); TOTAL IRON BINDING CAPACITY 378 ug/dL (250-450); TRANSFERRIN 315 mg/dL (200-370); UIBC 361 ug/dL (118-369)
[2017-12-12 08:20] LABS: BASO % 1.5 % (0-2.0); EOS % 2.7 % (0-4.5); HEMATOCRIT 25.7 % (32.4-45.2); HEMOGLOBIN 7.5 GM/dL (10.7-15.3); MCHC 29.3 g/dl (32.0-36.0); MEAN CELL VOLUME 62.2 fl (80-96); MEAN PLT VOLUME 8.5 fl (7.5-11.1); MONO % 9.7 % (3.8-10.2); NEUT % 64.1 % (42.8-82.8); PLATELET COUNT 262 K/MM3 (134-434); RBC 4.14 M/mm3 (3.60-5.2); RDW 19.6 % (11.6-15.6); WHITE BLOOD COUNT 6.7 K/mm3 (4.0-10.0)
[2017-12-12 08:21] LABS: ALBUMIN 3.7 g/dl (3.4-5.0); ALK PHOS 102 U/L (45-117); ANION GAP 7 (8-16); BILIRUBIN,TOTAL 0.1 mg/dL (0.2-1.0); BLOOD UREA NITROGEN 13 mg/dL (7-18); CALCIUM 8.8 mg/dL (8.5-10.1); CHLORIDE 107 mmol/L (98-107); CO2 27 mmol/L (21-32); CREATININE 0.6 mg/dL (0.55-1.02); GLUCOSE,RANDOM 141 mg/dL (74-106); POTASSIUM 4.2 mmol/L (3.5-5.1); SGOT/AST 25 U/L (15-37); SGPT/ALT 37 U/L (12-78); SODIUM 141 mmol/L (136-145); TOT PROT 7.1 g/dl (6.4-8.2)
[2017-12-12 08:36] LABS: MCH 18.2 pg (25.7-33.7)
[2017-12-12] MEDS: RANITIDINE HCL 150 MG TABLET (FP) PO SCH ×2 (09:20→21:00)
[2017-12-12] MEDS: LISINOPRIL 5 MG TABLET (FP) PO SCH (09:20)
[2017-12-12] MEDS: metoPROLOL SUCCINATE 25 MG TAB.SR.24H (FP) PO SCH ×2 (09:20→20:59)
[2017-12-12] MEDS: ASPIRIN 81 MG CHEWABLE TABLETS PO SCH (09:20)
[2017-12-12] MEDS ORDERED: RANITIDINE HCL 150 MG TABLET (FP) PO SCH (10:00)
[2017-12-12] MEDS ORDERED: IRON SUCROSE INJECTION 100 MG in SODIUM CHLORIDE 95 ML IVPB ONE (10:45)
--- NOTE | 2017-12-12 11:19 | PN ---
Progress Note (short form) - Note Progress Note: C syncope/cp S: no recurrence of dizziness. no cp, palps, dizziness. Current Medications Generic Name Dose Route Start Last Admin Trade Name Kylie PRN Reason Stop Dose Admin Aspirin 81 mg 12/11/17 10:00 12/12/17 09:20 Asa - PO 81 mg DAILY KATHIE Administration Atorvastatin Calcium 20 mg 12/11/17 22:00 12/11/17 21:58 Lipitor - PO 20 mg HS KATHIE Administration Insulin Aspart 1 vial 12/09/17 22:00 12/12/17 07:02 Novolog Vial Sliding Scale - SQ Not Given ACHS [facility] Protocol Levofloxacin 500 mg 12/11/17 18:00 12/12/17 09:20 Levaquin - PO 500 mg DAILY KATHIE Administration Lisinopril 5 mg 12/11/17 16:15 12/12/17 09:20 Prinivil PO 5 mg DAILY KATHIE Administration Metoprolol Succinate 25 mg 12/11/17 22:00 12/12/17 09:20 Toprol Xl - PO 25 mg BID KATHIE Administration Ranitidine HCl 150 mg 12/11/17 22:00 12/12/17 09:20 Zantac - PO 150 mg BID KATHIE Administration Vital Signs Period Temp Pulse Resp BP Sys/Garza Pulse Ox Last 24 Hr 97.2 F-99.6 F 76-90 20-20 144-172/72-86 96-97 nad, calm jvd flat, neck supple ctab, nl effort + ttp of right lower chest wall/rib cage. rrr nl s1, s2 no mrg + bs soft nt nd ext without e/c/c aaox3 no jaundice, diaphoresis. CBC, BMP 12/12/17 06:00 12/12/17 06:00 ekg: wnl tele: sr javier stress 12/2017: no ekg changes. moderate sized mild intensity ischemia in the inferior wall. EF 80%. echo 12/2017: nl lv/rv size/fn. basal septal hypertrophy. (no mention of LVOT obstruction). E/A reversal. 1+ mr/tr. carotid u/s: small plaque, no stenosis. nl verts cta: No PE proximally. + centrilobular emphysema (mild-moderate). minimal RLL interstitial thickening ASSESSMENT/PLAN 77 yo with h/o hypertension, hl, NIDDM, and hypothyroidism who p/w right sided CP after an episode of syncope last week. right sided cp - likely msk after injury to that area from fall/elevator door. Further eval/ mgm't per pmd syncope/cad - tele monitoring - trop neg x 3. ekg without ischemic changes. Echo with nl systolic function. - stress testing demonstrated moderate sized area of mild ischemia in the inferior wall. To cause syncope, would typically need more high risk/extensive ischemia than demonstrated. In light of low suspicion and new anemia, would further clarify etiology of anemia prior to pursuing cardiac catheterization. Started low dose asa here. LDL close to goal at 76. Patient was on simvastatin 40 mg/day as outpatient. No simva on formulary, started atorvastatin 20 here. Started toprol here as mentioned below, uptitrate to goal HR 60s-70s (will increase to 25 bid). - carotid u/s unremarkable. neuro c/s appreciated - tsh as above. infectious work up per pmd. - orthostatic vitals negative. htn - on norvasc as outpatient. HR's elevated. Started metoprolol here instead of prior outpatient norvasc. monitor for worsened sob/bronchospasm on toprol. - additionally, patient states she was also on benazepril 40 mg/day as outpatient (not on formulary). resumed lisinopril 5 mg/day today, uptitrate as needed. cardiac flowers stable for dc
--- NOTE | 2017-12-12 13:35 | PN ---
Physical Exam: SUBJECTIVE: Patient seen and examined at the bedside. Denies chest pain or shortness of breath. Refusing blood transfusion, agreeing with IV venofer infusions. OBJECTIVE: Vital Signs Period Temp Pulse Resp BP Sys/Garza Pulse Ox Last 24 Hr 97.2 F-99.6 F 76-90 20-20 144-172/72-86 96-97 GENERAL: The patient is awake, alert, and fully oriented, in no acute distress. HEAD: Normal with no signs of trauma. EYES: PERRL, extraocular movements intact, sclera anicteric, conjunctiva clear. No ptosis. ENT: Ears normal, nares patent, oropharynx clear without exudates, moist mucous membranes. NECK: Trachea midline, full range of motion, supple. LUNGS: Breath sounds equal, clear to auscultation bilaterally, no wheezes, no crackles, no accessory muscle use. HEART: Regular rate and rhythm, S1, S2 without murmur, rub or gallop. ABDOMEN: Soft, nontender, nondistended, normoactive bowel sounds, no guarding, no rebound, no hepatosplenomegaly, no masses. EXTREMITIES: 2+ pulses, warm, well-perfused, no edema. NEUROLOGICAL: Cranial nerves II through XII grossly intact. Normal speech, gait not observed. PSYCH: Normal mood, normal affect. SKIN: Warm, dry, normal turgor, no rashes or lesions noted Laboratory Results - last 24 hr 12/11/17 12/11/17 12/11/17 05:00 07:50 17:41 WBC RBC Hgb Hct MCV MCH MCHC RDW Plt Count MPV Neutrophils % Lymphocytes % Monocytes % Eosinophils % Basophils % Sodium 141 Potassium 4.2 Chloride 107 Carbon Dioxide 27 Anion Gap 7 L BUN 13 Creatinine 0.6 Creat Clearance w eGFR > 60 POC Glucometer 146 Random Glucose 141 H Calcium 8.8 Iron 17 L TIBC 378 Iron Saturation 4 L Transferrin 315 Total Bilirubin 0.1 L D AST 25 ALT 37 Alkaline Phosphatase 102 Total Protein 7.1 Albumin 3.7 12/11/17 12/12/17 12/12/17 21:18 06:00 06:00 WBC 6.7 RBC 4.14 Hgb 7.5 L D Hct 25.7 L MCV 62.2 L MCH 18.2 L MCHC 29.3 L RDW 19.6 H Plt Count 262 D MPV 8.5 Neutrophils % 64.1 Lymphocytes % 22.0 D Monocytes % 9.7 Eosinophils % 2.7 D Basophils % 1.5 Sodium 138 Potassium 3.7 Chloride 105 Carbon Dioxide 26 Anion Gap 7 L BUN 13 Creatinine 0.7 Creat Clearance w eGFR POC Glucometer 154 Random Glucose 177 H Calcium 8.9 Iron TIBC Iron Saturation Transferrin Total Bilirubin AST ALT Alkaline Phosphatase Total Protein Albumin 12/12/17 12/12/17 07:01 11:56 WBC RBC Hgb Hct MCV MCH MCHC RDW Plt Count MPV Neutrophils % Lymphocytes % Monocytes % Eosinophils % Basophils % Sodium Potassium Chloride Carbon Dioxide Anion Gap BUN Creatinine Creat Clearance w eGFR POC Glucometer 197 213 Random Glucose Calcium Iron TIBC Iron Saturation Transferrin Total Bilirubin AST ALT Alkaline Phosphatase Total Protein Albumin Active Medications Generic Name Dose Route Start Last Admin Trade Name Freq PRN Reason Stop Dose Admin Aspirin 81 mg 12/11/17 10:00 12/12/17 09:20 Asa - PO 81 mg DAILY KATHIE Administration Atorvastatin Calcium 20 mg 12/11/17 22:00 12/11/17 21:58 Lipitor - PO 20 mg HS KATHIE Administration Ferrous Sulfate 325 mg 12/12/17 22:00 Feosol - PO BID KATHIE Insulin Aspart 1 vial 12/09/17 22:00 12/12/17 11:57 Novolog Vial Sliding Scale - SQ Not Given ACHS [facility] Protocol Levofloxacin 500 mg 12/11/17 18:00 12/12/17 09:20 Levaquin - PO 500 mg DAILY KATHIE Administration Lisinopril 5 mg 12/11/17 16:15 12/12/17 09:20 Prinivil PO 5 mg DAILY KATHIE Administration Metoprolol Succinate 25 mg 12/11/17 22:00 12/12/17 09:20 Toprol Xl - PO 25 mg BID KATHIE Administration Ranitidine HCl 150 mg 12/11/17 22:00 12/12/17 09:20 Zantac - PO 150 mg BID KATHIE Administration ASSESSMENT/PLAN: Patient is a 77 year old female with a significant past medical history of diabetes mellitus (on Metformin), hypothyroidism and hypertension. She presents to the ED on 12/09/17 with chest pain after a syncopal episode. As per admitting notes, pt had a syncopal episode with LOC accompanied by loss of bowel continence. She developed CP after an elevator door reportedly hit her chest when she passed out. Neuro: Syncope/with reported loss of consciousness Echo with normal systolic function Stress test shows moderate sized area of mild ischemia in inferior wall. Card following, notes reviewed Pt to follow up outpatient once her hmg/hct are more stable for possible cardiac testing Started on Lipitor Carotid dopplers shows mild intimal thickening in the distal common carotid artery and at the bifurcation, bilaterally. Small plaques at the left common carotid bifucation and bulb without evidence of hemodynamically significant stenosis, bilaterally Not orthostatics EEG as an outpatient as per neuro (Dr. Galdamez) Patient to be sent home with glucometer Heme Microcytic Anemia hmg low from reported baseline Refusing blood transfusion 1 dose of IV venofer today, start on Ferritin PO Prior to d/c will need to scheduled IV venefor outpatient Card: Chest pain, resolved Trops negative Hypertension, chronic Started on metroprolol, was on Norvasc at home On Benazeril 40mg daily at home, NF here and Lisinopril started instead. : UTI Started on Levaquin 500mg for 7 days f/u repeat UC with PCP Endo: Hypothyroidism TSH mildly elevated, will confirm dose with her PCP Pt unsure of her dose amt, unsure of pharmacy Diabetes, will need glucometer for suspected hypoglycemic episodes at home F.E.N. Fluids: PO adequate Electrolytes: monitor Nutrition: low salt diet Prophy: DVT: SCDs, GI: Zantac Full code Visit type - Emergency Visit Emergency Visit: Yes ED Registration Date: 12/09/17 Care time: The patient presented to the Emergency Department on the above date and was hospitalized for further evaluation of their emergent condition. - New Patient This patient is new to me today: No - Critical Care Critical Care patient: No - Discharge Referral Referred to [facility] Med P.C.: No
[2017-12-12] MEDS: ATORVASTATIN CA 10 MG TABLET (FP) PO SCH (20:59)
[2017-12-12] MEDS ORDERED: FERROUS SO4 325 MG TABLET (FP) PO SCH (22:00)
[2017-12-13] MEDS ORDERED: IRON SUCROSE INJECTION 100 MG in SODIUM CHLORIDE 95 ML IVPB ONE (08:00)
[2017-12-13] MEDS: RANITIDINE HCL 150 MG TABLET (FP) PO SCH (09:02)
[2017-12-13] MEDS: ASPIRIN 81 MG CHEWABLE TABLETS PO SCH (09:02)
[2017-12-13] MEDS: metoPROLOL SUCCINATE 25 MG TAB.SR.24H (FP) PO SCH (09:02)
[2017-12-13] MEDS: LISINOPRIL 5 MG TABLET (FP) PO SCH (09:02)
[2017-12-13 09:49] LABS: EOS % 1.9 % (0-4.5); HEMATOCRIT 27.6 % (32.4-45.2); HEMOGLOBIN 8.1 GM/dL (10.7-15.3); LYMPH % 17.1 % (8-40); MCHC 29.2 g/dl (32.0-36.0); MEAN CELL VOLUME 62.2 fl (80-96); MEAN PLT VOLUME 8.2 fl (7.5-11.1); MONO % 10.2 % (3.8-10.2); NEUT % 69.8 % (42.8-82.8); PLATELET COUNT 267 K/MM3 (134-434); RBC 4.44 M/mm3 (3.60-5.2); RDW 19.9 % (11.6-15.6); WHITE BLOOD COUNT 7.6 K/mm3 (4.0-10.0)
[2017-12-13 09:50] LABS: MCH 18.2 pg (25.7-33.7)
[2017-12-13] MEDS: INSULIN SLIDING SCALE (NOVOLOG) 1 VIAL SQ SCH (12:41)
--- NOTE | 2017-12-13 13:50 | DS ---
Physical Exam: SUBJECTIVE: Patient seen and examined. Feels better today, wants to go home. OBJECTIVE: Vital Signs Period Temp Pulse Resp BP Sys/Garza Pulse Ox Last 24 Hr 97.3 F-98.3 F 79-96 18-22 109-153/49-90 97-98 PHYSICAL EXAM GENERAL: The patient is awake, alert, and fully oriented, in no acute distress. HEAD: Normal with no signs of trauma. EYES: PERRL, extraocular movements intact, sclera anicteric, conjunctiva clear. No ptosis. ENT: Ears normal, nares patent, oropharynx clear without exudates, moist mucous membranes. NECK: Trachea midline, full range of motion, supple. LUNGS: Breath sounds equal, clear to auscultation bilaterally, no wheezes, no crackles, no accessory muscle use. HEART: Regular rate and rhythm, S1, S2 without murmur, rub or gallop. ABDOMEN: Soft, nontender, nondistended, normoactive bowel sounds, no guarding, no rebound, no hepatosplenomegaly, no masses. EXTREMITIES: 2+ pulses, warm, well-perfused, no edema. NEUROLOGICAL: Cranial nerves II through XII grossly intact. Normal speech, gait not observed. PSYCH: Normal mood, normal affect. SKIN: Warm, dry, normal turgor, no rashes or lesions noted LABS Laboratory Results - last 24 hr 12/11/17 12/12/17 12/12/17 16:15 08:00 17:11 WBC RBC Hgb Hct MCV MCH MCHC RDW Plt Count MPV Neutrophils % Lymphocytes % Monocytes % Eosinophils % Basophils % POC Glucometer 143 Hemoglobin A1c % 8.7 H 8.4 H 12/12/17 12/13/17 12/13/17 20:58 05:22 09:40 WBC 7.6 RBC 4.44 Hgb 8.1 L Hct 27.6 L MCV 62.2 L MCH 18.2 L MCHC 29.2 L RDW 19.9 H Plt Count 267 MPV 8.2 Neutrophils % 69.8 Lymphocytes % 17.1 D Monocytes % 10.2 Eosinophils % 1.9 Basophils % 1.0 POC Glucometer 196 160 Hemoglobin A1c % 12/13/17 12:02 WBC RBC Hgb Hct MCV MCH MCHC RDW Plt Count MPV Neutrophils % Lymphocytes % Monocytes % Eosinophils % Basophils % POC Glucometer 178 Hemoglobin A1c % HOSPITAL COURSE: Date of Admission:12/09/17 Date of Discharge: 12/13/17 Patient is a 77 year old female with a significant past medical history of diabetes mellitus (on Metformin), hypothyroidism and hypertension. She presents to the ED on 12/09/17 with chest pain after a syncopal episode. As per admitting notes, pt had a syncopal episode with LOC accompanied by loss of bowel continence. She developed CP after an elevator door reportedly hit her chest when she passed out. Neuro: Syncope/with reported loss of consciousness, no episodes here, outpatient workup to continue Stress test shows moderate sized area of mild ischemia in inferior wall, further cardiology workup once anemia is treated Patient for venofer infusions outpatient for next 3 days for microcytic anemia before further cardiology workup EEG as an outpatient as per neuro (Dr. Galdamez) Patient to be sent home with glucometer, taught by primary RN Heme Microcytic Anemia hmg low from reported baseline Refusing blood transfusion Received 2 doses of venofer inpatient, to continue 3 more doses outpatient @ [place] Start Ferrous sulfate after venofer complete Card: Chest pain, resolved Trops negative Hypertension, controlled Started on metroprolol, was on Norvasc at home On Benazeril 40mg daily at home, NF here and Lisinopril started instead. : UTI Started on Levaquin 500mg for 4 more days f/u repeat UC with PCP Endo: Hypothyroidism TSH mildly elevated Patient to confirm dose with her PCP Diabetes, will need glucometer for suspected hypoglycemic episodes at home Continue home Metformin Full code Minutes to complete discharge: 60 Discharge Summary Reason For Visit: CHEST PAIN Current Active Problems Chest pain (Acute) Condition: Improved - Instructions Diet, Activity, Other Instructions: Mrs. Hsieh: You will be discharged home with a few changes in your medications as outlined in your discharge instructions. We have prescribed a glucomter device for your home use. This device should be used three times per day before meals. Please test your blood sugar and write down the number in a log book. Bring this log book with you when you see your primary care physician. IV venofer infusions have been arranged for you on 12/14, 12/15 and 12/16. Please report to central registration at [facility] at 9am on these dates. Please start the Iron supplements by mouth (ferrous sulfate 325mg) ordered for you on 12/17 (after you complete the Iron infusions). You will also need to follow up with the metal punch press operator once your complete the IV iron infusions for further cardiac workup. Please call me with any questions that you may have. Mable Den[facility] @ [facility] [phone] Referrals: Josselyn Langston MD [Staff Physician] - 1 Week Malcom Chong MD [Primary Care Provider] - Katerine Duran MD [Staff Physician] - Disposition: HOME - Home Medications Comprehensive Discharge Medication List: Ambulatory Orders Benazepril HCl [Lotensin (Nf)] 0 mg PO DAILY 12/09/17 Levothyroxine [Synthroid -] 0 mcg PO DAILY 12/09/17 Metformin HCl [Metformin HCl ER] 1,000 mg PO BID 12/09/17 Omeprazole 40 mg PO DAILY 12/09/17 Ranitidine HCl 0 mg PO DAILY 12/09/17 Alcohol Antiseptic Pads [Alcohol Prep Pads] 1 each TP ACHS #1 box 12/13/17 Aspirin [ASA -] 81 mg PO DAILY #30 tab.chew 12/13/17 Atorvastatin Ca [Lipitor] 20 mg PO HS #30 tablet 12/13/17 Ferrous Sulfate [Feosol] 325 mg PO BID #60 ud 12/13/17 Iron Sucrose Complex [Venofer] 100 mg IV DAILY #3 ml 12/13/17 Lancets [Wavesense Lancets] 1 each MC ACHS #1 box 12/13/17 Metoprolol Succinate [Toprol XL -] 25 mg PO BID #60 tab.sr.24h 12/13/17 Miscellaneous Medical Supply [Glucometer Device] 1 each SQ ASDIR #1 kit Miscellaneous Medical Supply [Glucometer Test Strips #100] 1 each SQ ASDIR #1 box 12/13/17 Ranitidine [Zantac -] 150 mg PO BID tablet 12/13/17 levoFLOXacin [Levaquin -] 500 mg PO DAILY #4 tablet 12/13/17 This patient is new to me today: No Emergency Visit: Yes ED Registration Date: 12/09/17 Care time: The patient presented to the Emergency Department on the above date and was hospitalized for further evaluation of their emergent condition. Critical Care patient: No - Discharge Referral Referred to [facility] Med P.C.: No
[2017-12-13 15:34] VITALS: BP 141/88; PULSE 85; TEMP 97.3
== END 2017-12-13 15:51 | disposition home or self-care (01) ==
LOC: JER 09:45 → JERBED 15:28 → J4W 17:35
PROVIDERS: ADMIT Internal Medicine; ATTEND Nurse Practitioner Family
PROC: 3E033GC Introduction of Other Therapeutic Substance into Peripheral Vein, Percutaneous Approach (ICD-10-PCS; principal; 2017-12-09)
DX: R07.89 Other chest pain (principal); R55 Syncope and collapse; N39.0 Urinary tract infection, site not specified; D50.9 Iron deficiency anemia, unspecified; I10 Essential (primary) hypertension; E11.9 Type 2 diabetes mellitus without complications; E03.9 Hypothyroidism, unspecified; Z87.891 Personal history of nicotine dependence; Z88.0 Allergy status to penicillin; Z88.2 Allergy status to sulfonamides; Z91.040 Latex allergy status; Z79.84 Long term (current) use of oral hypoglycemic drugs
CPT/HCPCS: 36415; 71045-TC-FY; 71275-TC; 78452-TC; 80048; 80053; 80061; 81003; 81015; 82550; 82728; 82962; 83036; 83540; 83550; 83721; 83735; 83880; 84443; 84466; 84484; 85025; 85027; 85610; 85730; 87086; 87186; 93005; 93010; 93017; 93306-TC; 93880-TC; 96365; 96367; 96375; 99283-25; A9502; C1887; G0378; J1245; J1756

== ENCOUNTER 2017-12-14 09:10 | Day surgery (SDC) | payer OTHER ==
[2017-12-14] MEDS ORDERED: IRON SUCROSE INJECTION 100 MG in SODIUM CHLORIDE 100 ML IVPB ONE (10:00)
[2017-12-14 11:20] VITALS: TEMP 99
[2017-12-14 11:27] VITALS: BP 119/90; PULSE 98
== END 2017-12-14 11:28 | disposition home or self-care (01) ==
LOC: JINFUSION 09:10
PROVIDERS: ATTEND Family Medicine
PROC: 3E033GC Introduction of Other Therapeutic Substance into Peripheral Vein, Percutaneous Approach (ICD-10-PCS; principal; 2017-12-14)
DX: D50.9 Iron deficiency anemia, unspecified (principal); I10 Essential (primary) hypertension; E11.9 Type 2 diabetes mellitus without complications; Z79.84 Long term (current) use of oral hypoglycemic drugs
CPT/HCPCS: 96365; J1756

== ENCOUNTER 2017-12-15 08:44 | Day surgery (SDC) | payer OTHER ==
[2017-12-15] MEDS ORDERED: IRON SUCROSE INJECTION 100 MG in SODIUM CHLORIDE 100 ML IVPB ONE (09:00)
[2017-12-15 14:08] VITALS: BP 120/68; PULSE 88; TEMP 98
== END 2017-12-15 10:10 | disposition home or self-care (01) ==
LOC: JINFUSION 08:44
PROVIDERS: ATTEND Family Medicine
PROC: 3E033GC Introduction of Other Therapeutic Substance into Peripheral Vein, Percutaneous Approach (ICD-10-PCS; principal; 2017-12-15)
DX: D50.9 Iron deficiency anemia, unspecified (principal); I10 Essential (primary) hypertension; E11.9 Type 2 diabetes mellitus without complications; Z79.84 Long term (current) use of oral hypoglycemic drugs
CPT/HCPCS: 96365; J1756

== ENCOUNTER 2017-12-16 09:06 | Day surgery (SDC) | payer OTHER ==
[~2017-12-16 09:06] MED LIST: IRON SUCROSE INJECTION 100 MG in SODIUM CHLORIDE 100 ML IVPB ONE
[2017-12-16 14:30] VITALS: BP 153/91; PULSE 85; TEMP 98
== END 2017-12-16 11:00 | disposition home or self-care (01) ==
LOC: JINFUSION 09:06
PROVIDERS: ATTEND Family Medicine
PROC: 3E033GC Introduction of Other Therapeutic Substance into Peripheral Vein, Percutaneous Approach (ICD-10-PCS; principal; 2017-12-16)
DX: D50.9 Iron deficiency anemia, unspecified (principal); I10 Essential (primary) hypertension; E11.9 Type 2 diabetes mellitus without complications; Z79.84 Long term (current) use of oral hypoglycemic drugs
CPT/HCPCS: 96365; J1756

== ENCOUNTER 2019-09-11 09:18 | Emergency (ER) | payer OTHER ==
[2019-09-11 09:31] VITALS: BMI 31.6
[2019-09-11] MEDS ORDERED: METOCLOPRAMIDE HCL INJECTION 10 MG/2 ML VIAL IVPUSH ONE (09:59)
[2019-09-11] MEDS ORDERED: MAG HYDROX/AL HYDROX/SIMETH -MYLANTA- ORAL SUSPENSION PO ONE (09:59)
[2019-09-11] MEDS ORDERED: FAMOTIDINE 20 MG/50 ML IVPB 20 MG in PREMIX 50 IVPB ONE (09:59)
[2019-09-11] MEDS ORDERED: MAG HYDROX/AL HYDROX/SIMETH 30 ML UNIT-DOSE CUP ONE (10:13)
[2019-09-11] MEDS ORDERED: METOCLOPRAMIDE HCL INJECTION 10 MG/2 ML VIAL ONE (10:13)
[2019-09-11] MEDS ORDERED: FAMOTIDINE 20 MG/50 ML IVPB 20 MG/50 ML MG IVPB ONE (10:13)
[2019-09-11 10:49] LABS: BASO % 0.8 % (0-2.0); EOS % 2.4 % (0-4.5); HEMOGLOBIN 13.6 GM/dL (10.7-15.3); LYMPH % 19.7 % (8-40); MCHC 31.7 g/dl (32.0-36.0); MEAN PLT VOLUME 8.4 fl (7.5-11.1); MONO % 6.1 % (3.8-10.2); PLATELET COUNT 279 K/MM3 (134-434); RBC 5.44 M/mm3 (3.60-5.2); RDW 13.2 % (11.6-15.6); WHITE BLOOD COUNT 6.6 K/mm3 (4.0-10.0)
--- NOTE | 2019-09-11 11:00 | PDOC ---
Documentation entered by Tania Rudolph SCRIBE, acting as scribe for Boone Mario MD. Boone Mario MD: This documentation has been prepared by the Ronni barrett Brenda, SCRIBE, under my direction and personally reviewed by me in its entirety. I confirm that the documentation accurately reflects all work, treatment, procedures, and medical decision making performed by me. History of Present Illness - General Chief Complaint: Headache Stated Complaint: HEADACHE/ABNORMAL BLOOD WORKS Time Seen by Provider: 09/11/19 09:43 History Source: Patient Exam Limitations: No Limitations - History of Present Illness Initial Comments: 09/11/19 09:53 The patient is a 78 year old female, with a significant PMH of hypertension, NIDDM, and hypothyroidism who presents with multiple complaints including headache and chest pain. Patient states that she has been following with Dr. Chong, has been having her hemoglobin A1c monitored has been high she was started on on new diabetes medications that did not agree with her so she stopped taking it. She also endorses feeling intermittent stabbing headaches for the past several weeks states that it occurs at random times and is in very locations but her headache today is located behind her right eye and is sharp and stabbing that started sometime overnight. Patient also endorses chest, epigastric type pressure that also comes and goes, sometimes associated with shortness of breath. Patient describes the sensation as radiating up her chest and wanting to burp. She denies occurrence of this discomfort with food intake. She also endorses feeling generally weak but without any focality. patient denies any focal vision changes, numbness, tingling, weakness, nausea, vomiting, back pain, dysuria, hematuria, diarrhea, blood per rectumn Allergies: Penicillins, Sulfa, latex Past surgical history: Hiatel hernia repair in 2015 Social history: Former smoker PCP: Castillo Past History - Past Medical History Allergies/Adverse Reactions: Allergies Allergy/AdvReac Type Severity Reaction Status Date / Time Penicillins Allergy Unknown Verified 09/11/19 09:31 Sulfa (Sulfonamide Allergy Unknown Verified 09/11/19 09:31 Antibiotics) latex Allergy Verified 09/11/19 09:31 tuberculin test Allergy Uncoded 09/11/19 09:31 Home Medications: Ambulatory Orders Benazepril HCl [Lotensin (Nf)] 0 mg PO DAILY 12/09/17 Levothyroxine [Synthroid -] 0 mcg PO DAILY 12/09/17 Omeprazole 40 mg PO DAILY 12/09/17 Ranitidine HCl 0 mg PO DAILY 12/09/17 metFORMIN HCL [Metformin ER Osmotic] 1,000 mg PO BID 12/09/17 Alcohol Antiseptic Pads [Alcohol Prep Pads] 1 each TP ACHS #1 box 12/13/17 Aspirin [ASA -] 81 mg PO DAILY #30 tab.chew 12/13/17 Atorvastatin Ca [Lipitor] 20 mg PO HS #30 tablet 12/13/17 Ferrous Sulfate [Feosol] 325 mg PO BID #60 ud 12/13/17 Iron Sucrose Complex [Venofer] 100 mg IV DAILY #3 ml 12/13/17 Lancets [Wavesense Lancets] 1 each MC ACHS #1 box 12/13/17 Metoprolol Succinate [Toprol XL -] 25 mg PO BID #60 tab.sr.24h 12/13/17 Miscellaneous Medical Supply [Glucometer Device] 1 each SQ ASDIR #1 kit Miscellaneous Medical Supply [Glucometer Test Strips #100] 1 each SQ ASDIR #1 box 12/13/17 Ranitidine [Zantac -] 150 mg PO BID tablet 12/13/17 levoFLOXacin [Levaquin -] 500 mg PO DAILY #4 tablet 12/13/17 COPD: No Diabetes: Yes (DM non insulin dependent) HTN: Yes Thyroid Disease: Yes (HYPO) - Surgical History Abdominal Surgery: Yes (hiatal hernia repair 2014) - Immunization History Immunization Up to Date: Yes - Psycho Social/Smoking Cessation Hx Smoking History: Never smoked Have you smoked in the past 12 months: No If you are a former smoker, when did you quit?: 2004 Hx Alcohol Use: No Drug/Substance Use Hx: No Substance Use Type: None Hx Substance Use Treatment: No Review of Systems - Review of Systems Able to Perform ROS?: Yes Comments:: 09/11/19 10:03 Constitutional - +generalized weakness no reported Fever, Chills, HEENT: no reported vision changes, sore throat Respiratory: no reported cough, sob, hemoptysis Cardiac: + chest pain, chest pain, no reported palpitations, light headedness, leg swelling Abd/GI: no reported abd pain, nausea, vomiting, blood per rectum, melena, diarrhea : no reported dysuria, frequency, discharge Musculskelatal - no reported back pain, joint swelling skin - no reported bruising, erythema, rash neurological: + headache,no reported numbness, focal weakness, tingling, ataxia , hematologic: no reported easy bruising, easy bleeding *Physical Exam - Vital Signs Last Vital Signs Temp Pulse Resp BP Pulse Ox 97.9 F 81 16 161/90 97 09/11/19 09:28 09/11/19 09:28 09/11/19 09:28 09/11/19 09:28 09/11/19 09:28 - Physical Exam 09/11/19 10:09 GENERAL: The patient is awake, alert, and fully oriented, Nontoxic - in no acute distress, well nourished HEAD: Normocephalic, atraumatic. EYES: extraocular movements intact, sclera anicteric, conjunctiva clear. ENT: Normal voice, Moist mucous membranes. NECK: Normal range of motion, supple LUNGS: Breath sounds equal, clear to auscultation bilaterally. No wheezes, no rhonchi, no rales. HEART: Regular rate and rhythm, normal S1 and S2 without murmur, rub or gallop. ABDOMEN: Soft, nontender, No guarding, no rebound. No CVA tenderness EXTREMITIES: Normal range of motion, no edema. NEUROLOGICAL: No facial assymetry, Normal speech, PSYCH: Normal mood, normal affect. SKIN: Warm, Dry, normal turgor, Heart Score/ECG Review - ECG Impressions Comment:: 09/11/19 13:10 Twelve-lead EKG was performed and reviewed by me. There is normal sinus rhythm with a normal rate. rate of 78 Right bundle branch block twi in anterior leads, new when compared with ekg from 2018 ED Treatment Course - LABORATORY CBC & Chemistry Diagram: 09/11/19 10:25 09/11/19 10:25 Medical Decision Making - Medical Decision Making 09/11/19 10:12 Differential for the patient's symptoms includes possible tension headache, cluster headache, migraine. We will give the patient Reglan for her headache Her generalized weakness may be secondary to anemia, metabolic derangements we will check some labs Her epigastric pain/discomfort may be due to GERD/indigestion/ACS/pancreatitis will obtain CBC, CMP, troponin, lipase. We will give the patient Pepcid and Maalox 09/11/19 13:12 Patient's labs reviewed they are unremarkable she does have some EKG changes when compared to the prior EKG will admit for further risk stratefication 09/11/19 14:38 We had an extensive discussion regarding staying in the hospital for further re- stratification of her chest pain however the patient declined staying in hospital will obtain a second troponin. Patient states she had something to do as an outpatient and will either come back at a later time or to see her blanking press operator as an outpatient. I discussed with her concern for ACS the patient states she understands she will stay for another troponin and make a decision based on the troponin 09/11/19 17:11 trop is negative will dc the pt with outpatint fu again discussed recomendation ofs taying in the hosptial but pt declines. states she prefers to work up as outpatient. will dc with undersatnding she may return at any time to return and continue her workup Discharge - Discharge Information Problems reviewed: Yes Clinical Impression/Diagnosis: Chest pain Qualifiers: Chest pain type: unspecified Qualified Code(s): R07.9 - Chest pain, unspecified Head ache Qualifiers: Headache type: tension-type Headache chronicity pattern: chronic headache Intractability: not intractable Qualified Code(s): G44.229 - Chronic tension- type headache, not intractable Condition: Improved Disposition: AGAINST MEDICAL ADVICE - Admission No - Follow up/Referral Referrals: Malcom Chong MD [Primary Care Provider] - Edin Asencio MD [Staff Physician] - Oral Prince MD [Staff Physician] - Matteo Looney MD [Staff Physician] - - Patient Discharge Instructions Patient Printed Discharge Instructions: DI for Atypical Chest Pain, DI for Headache Additional Instructions: YOu are leaving against medical advice. There were some EKG changes we would like to further evaluate. After extensive discussion of the risks you state you would prefer to work it up as an outpatient. I have given you referrals to a blanking press operator and a gastroenterolgoist. please return at any time to complete your workup. Print Language: CHINESE - Post Discharge Activity
[2019-09-11 11:12] LABS: ALBUMIN 4.2 g/dl (3.4-5.0); BILIRUBIN,TOTAL 0.2 mg/dL (0.2-1); BLOOD UREA NITROGEN 13.6 mg/dL (7-18); CALCIUM 10.1 mg/dL (8.5-10.1); POTASSIUM 4.4 mmol/L (3.5-5.1); TOT PROT 8.4 g/dl (6.4-8.2)
[2019-09-11 11:13] LABS: LIPASE 116 U/L (73-393)
[2019-09-11] MEDS ORDERED: PANTOPRAZOLE SODIUM 40 MG in SODIUM CHLORIDE 100 ML IVPB ONE (12:25)
[2019-09-11] MEDS ORDERED: ACETAMINOPHEN 325 MG TABLET (FP) PO ONE (12:26)
[2019-09-11] MEDS ORDERED: ACETAMINOPHEN 325 MG TABLET (FP) ONE (12:33)
[2019-09-11] MEDS ORDERED: PANTOPRAZOLE SODIUM 40 MG/100 ML BAG IVPB ONE (12:34)
--- NOTE | 2019-09-11 13:20 | EKG ---
Test Reason : Blood Pressure : / mmHG Vent. Rate : 078 BPM Atrial Rate : 078 BPM P-R Int : 158 ms QRS Dur : 130 ms QT Int : 394 ms P-R-T Axes : 068 008 043 degrees QTc Int : 449 ms NORMAL SINUS RHYTHM RIGHT BUNDLE BRANCH BLOCK ABNORMAL ECG WHEN COMPARED WITH ECG OF 09-DEC-2017 10:24, RIGHT BUNDLE BRANCH BLOCK IS NOW PRESENT Confirmed by MARILOU VALENCIA MD ([id number]) on 09/11/2019 1:19:33 PM Referred By: Confirmed By:MARILOU VALENCIA MD
[2019-09-11 19:55] VITALS: BP 155/90; PULSE 86; TEMP 98
== END 2019-09-11 19:57 | disposition left against medical advice (07) ==
LOC: JER 09:18
PROC: 3E033GC Introduction of Other Therapeutic Substance into Peripheral Vein, Percutaneous Approach (ICD-10-PCS; principal; 2019-09-11)
PROC: 3E033GC Introduction of Other Therapeutic Substance into Peripheral Vein, Percutaneous Approach (ICD-10-PCS; 2019-09-11)
PROC: 3E033GC Introduction of Other Therapeutic Substance into Peripheral Vein, Percutaneous Approach (ICD-10-PCS; 2019-09-11)
DX: G44.229 Chronic tension-type headache, not intractable (principal); R07.9 Chest pain, unspecified; I10 Essential (primary) hypertension; E03.9 Hypothyroidism, unspecified; E11.9 Type 2 diabetes mellitus without complications; Z79.84 Long term (current) use of oral hypoglycemic drugs; Z88.2 Allergy status to sulfonamides; Z88.0 Allergy status to penicillin; Z91.040 Latex allergy status; Z88.7 Allergy status to serum and vaccine
CPT/HCPCS: 36415; 80053; 82550; 83690; 84484; 85025; 93005; 93010; 96365; 96367; 96375; 99283-25

== ENCOUNTER 2021-01-02 04:57 | Emergency (ER) | payer OTHER ==
[2021-01-02 05:30] VITALS: BMI 33.0
[2021-01-02 06:06] LABS: EOS % 2.4 % (0-4.5); HEMOGLOBIN 12.3 GM/dL (10.7-15.3); LYMPH % 23.9 % (8-40); MCH 24.4 pg (25.7-33.7); MCHC 31.6 g/dl (32.0-36.0); MEAN CELL VOLUME 77.4 fl (80-96); MEAN PLT VOLUME 8.4 fl (7.5-11.1); MONO % 8.7 % (3.8-10.2); PLATELET COUNT 209 K/MM3 (134-434); RBC 5.04 M/mm3 (3.60-5.2); RDW 14.9 % (11.6-15.6); WHITE BLOOD COUNT 6.5 K/mm3 (4.0-10.0)
[2021-01-02 06:12] LABS: INR 0.97 (0.83-1.09); PROTHROMBIN TIME (PATIENT) 11.9 SEC (9.7-13.0)
[2021-01-02 06:15] LABS: ACTIVATED PTT 30.9 SECONDS (25.2-36.5)
[2021-01-02 06:31] LABS: ALBUMIN 3.7 g/dl (3.4-5.0); BLOOD UREA NITROGEN 23.2 mg/dL (7-18); CALCIUM 9.5 mg/dL (8.5-10.1)
[2021-01-02 06:35] LABS: BILIRUBIN,TOTAL 0.2 mg/dL (0.2-1); CREATININE 1.1 mg/dL (0.55-1.3)
[2021-01-02 06:37] LABS: TOT PROT 7.6 g/dl (6.4-8.2)
[2021-01-02 08:07] VITALS: BP 155/83; PULSE 85; TEMP 98.1
[2021-01-02] MEDS ORDERED: TRANEXAMIC ACID 1000 MG/10 ML VIAL IVPUSH ONE (09:39)
[2021-01-02] MEDS ORDERED: TRANEXAMIC ACID 1000 MG/10 ML VIAL ONE (09:44)
== END 2021-01-02 09:45 | disposition home or self-care (01) ==
LOC: JER 04:57
PROC: 3E033GC Introduction of Other Therapeutic Substance into Peripheral Vein, Percutaneous Approach (ICD-10-PCS; principal; 2021-01-02)
DX: R04.2 Hemoptysis (principal); R03.0 Elevated blood-pressure reading, without diagnosis of hypertension
CPT/HCPCS: 36415; 71045-TC-FY; 71275-TC; 80053; 82550; 84484; 85025; 85610; 85730; 86850; 86900; 86901; 93005; 93010; 96374; 99285-25

== ENCOUNTER 2021-09-29 11:11 | Inpatient (IN) | payer OTHER ==
[2021-09-29 13:23] LABS: BASO % 0.5 % (0-2.0); EOS % 0.4 % (0-4.5); HEMATOCRIT 40.9 % (32.4-45.2); HEMOGLOBIN 12.6 GM/dL (10.7-15.3); LYMPH % 28.8 % (8-40); MCH 24.1 pg (25.7-33.7); MCHC 30.8 g/dl (32.0-36.0); MEAN CELL VOLUME 78.3 fl (80-96); MEAN PLT VOLUME 8.7 fl (7.5-11.1); MONO % 15.1 % (3.8-10.2); NEUT % 55.2 % (42.8-82.8); PLATELET COUNT 184 10^3/uL (134-434); RBC 5.22 M/mm3 (3.60-5.2); RDW 13.1 % (11.6-15.6); WHITE BLOOD COUNT 3.5 K/mm3 (4.0-10.0)
[2021-09-29 13:30] LABS: INR 1.06 (0.83-1.09); PROTHROMBIN TIME (PATIENT) 12.2 SEC (9.7-13.0)
[2021-09-29 13:33] LABS: ACTIVATED PTT 31.1 SECONDS (25.2-36.5)
[2021-09-29 13:57] LABS: CALCIUM 9.6 mg/dL (8.5-10.1)
[2021-09-29 13:58] LABS: ALBUMIN 3.9 g/dl (3.4-5.0); BLOOD UREA NITROGEN 16.2 mg/dL (7-18)
[2021-09-29 14:01] LABS: CREATININE 1.2 mg/dL (0.55-1.3); PHOSPHOROUS 2.8 mg/dL (2.5-4.9)
[2021-09-29 14:02] LABS: TOT PROT 7.8 g/dl (6.4-8.2)
[2021-09-29 14:03] LABS: BILIRUBIN,TOTAL 0.3 mg/dL (0.2-1)
[2021-09-29] MEDS ORDERED: amLODIPine BESYLATE 10 MG TABLET (FP) PO ONE (14:35)
[2021-09-29] MEDS ORDERED: ACETAMINOPHEN 325 MG TABLET (FP) PO ONE (14:35)
[2021-09-29] MEDS ORDERED: NIFEdipine E.R. 30 MG TABLET PO ONE (14:44)
[2021-09-29] MEDS ORDERED: ASPIRIN 81 MG CHEWABLE TABLETS PO ONE (14:45)
[2021-09-29] MEDS ORDERED: ACETAMINOPHEN 325 MG TABLET (FP) PO PRN (15:14)
[2021-09-29] MEDS ORDERED: ACETAMINOPHEN 325 MG TABLET (FP) ONE (15:50)
[2021-09-29] MEDS ORDERED: ASPIRIN 81 MG CHEWABLE TABLETS ONE (15:51)
[2021-09-29] MEDS ORDERED: NIFEdipine E.R. 30 MG TABLET ONE (15:51)
[2021-09-29] MEDS ORDERED: amLODIPine BESYLATE 5 MG TABLET (FP) ONE (15:51)
[2021-09-29] MEDS ORDERED: METOPROLOL TARTRATE 5 MG/5 ML VIAL IVPUSH ONE (16:39)
[2021-09-29] MEDS ORDERED: METOPROLOL TARTRATE 5 MG/5 ML VIAL ONE (16:50)
[2021-09-29] MEDS ORDERED: metFORMIN HCL 500 MG TABLET (FP) ONE (16:50)
[2021-09-29] MEDS: metFORMIN HCL 500 MG TABLET (FP) PO SCH (17:01)
[2021-09-29] MEDS ORDERED: SODIUM CHLORIDE 0.9% 500 ML INFUS.BAG IV ONE (17:17)
[2021-09-29] MEDS ORDERED: METOCLOPRAMIDE HCL INJECTION 10 MG/2 ML VIAL IVPUSH ONE (17:17)
[2021-09-29] MEDS ORDERED: METOCLOPRAMIDE HCL INJECTION 10 MG/2 ML VIAL ONE (17:21)
[2021-09-29] MEDS ORDERED: hydrALAZINE HCL 20 MG/ML VIAL ONE (18:43)
[2021-09-29] MEDS: hydrALAZINE HCL 20 MG/ML VIAL IVPUSH ONE ×2 (18:45→19:05)
[2021-09-29] MEDS: ATORVASTATIN CA 40 MG TABLET (FP) PO SCH (22:40)
[2021-09-29] MEDS: metoPROLOL SUCCINATE 25 MG TAB.SR.24H (FP) PO SCH (22:40)
[2021-09-29] MEDS: DOCUSATE SODIUM 100 MG CAPSULE (FP) PO SCH (22:40)
[2021-09-30 00:55] VITALS: BMI 31.6
[2021-09-30 01:30] LABS: URINE APPEARANCE CLEAR; URINE BILIRUBIN NEGATIVE (NEGATIVE); URINE COLOR YELLOW; URINE GLUCOSE (UA) 1+ (NEGATIVE); URINE KETONE NEGATIVE (NEGATIVE); URINE LEUK ESTERASE NEGATIVE (NEGATIVE); URINE NITRITE NEGATIVE (NEGATIVE); URINE PROTEIN NEGATIVE (NEGATIVE)
[2021-09-30] MEDS: metFORMIN HCL 500 MG TABLET (FP) PO SCH ×2 (06:58→16:30)
[2021-09-30] MEDS: LEVOTHYROXINE NA 50 MCG TABLET (FP) PO SCH (06:58)
[2021-09-30] MEDS: DOCUSATE SODIUM 100 MG CAPSULE (FP) PO SCH ×3 (06:58→21:06)
[2021-09-30 08:19] LABS: BASO % 0.5 % (0-2.0); EOS % 0.7 % (0-4.5); HEMOGLOBIN 12.8 GM/dL (10.7-15.3); LYMPH % 25.4 % (8-40); MCH 24.8 pg (25.7-33.7); MCHC 32.1 g/dl (32.0-36.0); MEAN CELL VOLUME 77.3 fl (80-96); MEAN PLT VOLUME 8.5 fl (7.5-11.1); MONO % 12.5 % (3.8-10.2); NEUT % 60.9 % (42.8-82.8); PLATELET COUNT 178 10^3/uL (134-434); RBC 5.17 M/mm3 (3.60-5.2); RDW 13.3 % (11.6-15.6); WHITE BLOOD COUNT 3.6 K/mm3 (4.0-10.0)
[2021-09-30 08:28] LABS: ALBUMIN 3.7 g/dl (3.4-5.0); CALCIUM 9.5 mg/dL (8.5-10.1)
[2021-09-30 08:32] LABS: CREATININE 0.8 mg/dL (0.55-1.3)
[2021-09-30 08:33] LABS: BILIRUBIN,TOTAL 0.4 mg/dL (0.2-1); CHOLESTEROL 180 mg/dL (50-200); TOT PROT 7.8 g/dl (6.4-8.2); TRIGLYCERIDES 92 mg/dL (0-150)
[2021-09-30 08:34] LABS: LDL CHOLESTEROL (ONLY SJRH) 132 mg/dL (5-100)
[2021-09-30 08:36] LABS: HDL CHOLESTEROL 33 mg/dL (40-60)
[2021-09-30] MEDS ORDERED: SODIUM CHLORIDE 1,000 ML IV STA (09:21)
[2021-09-30] MEDS ORDERED: amLODIPine BESYLATE 10 MG TABLET (FP) PO SCH (10:00)
[2021-09-30 10:01] LABS: BASO % 0.2 % (0-2.0); EOS % 0.7 % (0-4.5); HEMATOCRIT 41.7 % (32.4-45.2); HEMOGLOBIN 12.8 GM/dL (10.7-15.3); LYMPH % 35.3 % (8-40); MCH 24.1 pg (25.7-33.7); MCHC 30.8 g/dl (32.0-36.0); MEAN CELL VOLUME 78.4 fl (80-96); MEAN PLT VOLUME 9.1 fl (7.5-11.1); MONO % 11.2 % (3.8-10.2); NEUT % 52.6 % (42.8-82.8); PLATELET COUNT 217 10^3/uL (134-434); RBC 5.32 M/mm3 (3.60-5.2); RDW 13.3 % (11.6-15.6); WHITE BLOOD COUNT 4.9 K/mm3 (4.0-10.0)
[2021-09-30 10:24] LABS: CALCIUM 9.8 mg/dL (8.5-10.1)
[2021-09-30 10:25] LABS: ALBUMIN 3.7 g/dl (3.4-5.0)
[2021-09-30 10:28] LABS: CREATININE 1.3 mg/dL (0.55-1.3)
[2021-09-30 10:29] LABS: TOT PROT 7.8 g/dl (6.4-8.2)
[2021-09-30] MEDS ORDERED: KCL 10 MEQ IVPB 10 MEQ/100 ML INFUS.BAG IVPB SCH (10:30)
[2021-09-30 10:37] LABS: BILIRUBIN,TOTAL 0.5 mg/dL (0.2-1)
[2021-09-30] MEDS ORDERED: POTASSIUM CHLORIDE TABS 20 MEQ TABLET.ER (FP) PO ONE (10:59)
[2021-09-30] MEDS: NIFEdipine E.R. 30 MG TABLET PO SCH (11:16)
[2021-09-30] MEDS: PANTOPRAZOLE 40 MG TABLET PO SCH (11:16)
[2021-09-30] MEDS: metoPROLOL SUCCINATE 25 MG TAB.SR.24H (FP) PO SCH ×2 (11:16→21:06)
[2021-09-30] MEDS: LISINOPRIL 20 MG TABLET PO SCH ×2 (11:16→13:35)
[2021-09-30] MEDS: ASPIRIN 81 MG CHEWABLE TABLETS PO SCH (11:17)
[2021-09-30] MEDS: ATORVASTATIN CA 40 MG TABLET (FP) PO SCH (21:06)
[2021-10-01] MEDS: LEVOTHYROXINE NA 50 MCG TABLET (FP) PO SCH (06:25)
[2021-10-01] MEDS: DOCUSATE SODIUM 100 MG CAPSULE (FP) PO SCH ×3 (06:25→21:14)
[2021-10-01] MEDS: metFORMIN HCL 500 MG TABLET (FP) PO SCH ×2 (06:26→17:37)
[2021-10-01] MEDS: ASPIRIN 81 MG CHEWABLE TABLETS PO SCH (09:35)
[2021-10-01] MEDS: PANTOPRAZOLE 40 MG TABLET PO SCH (09:35)
[2021-10-01] MEDS: LISINOPRIL 20 MG TABLET PO SCH (09:35)
[2021-10-01] MEDS: NIFEdipine E.R. 30 MG TABLET PO SCH (09:35)
[2021-10-01] MEDS: metoPROLOL SUCCINATE 25 MG TAB.SR.24H (FP) PO SCH ×2 (09:35→21:15)
[2021-10-01] MEDS: DONEPEZIL HCL 5 MG TABLET (FP) PO SCH (12:37)
[2021-10-01] MEDS: BUDESONIDE/FORMETEROL FUMARATE 80/4.5 mcg INHALER IH SCH ×2 (14:56→21:15)
[2021-10-01] MEDS: DEXAMETHASONE SOD PHOSPHATE 4 MG/1 ML VIAL IVPUSH SCH (14:57)
[2021-10-01] MEDS ORDERED: REMDESIVIR 200 MG in SODIUM CHLORIDE 250 ML IVPB ONE (15:00)
[2021-10-01] MEDS: ATORVASTATIN CA 40 MG TABLET (FP) PO SCH (21:15)
[2021-10-02] MEDS: metFORMIN HCL 500 MG TABLET (FP) PO SCH ×2 (06:15→17:24)
[2021-10-02] MEDS: glipiZIDE 5 MG TABLET (FP) PO SCH (06:15)
[2021-10-02] MEDS: DOCUSATE SODIUM 100 MG CAPSULE (FP) PO SCH ×4 (06:15→21:08)
[2021-10-02] MEDS: LEVOTHYROXINE NA 50 MCG TABLET (FP) PO SCH (06:16)
[2021-10-02 08:20] LABS: BLOOD UREA NITROGEN 33.5 mg/dL (7-18); CALCIUM 9.1 mg/dL (8.5-10.1)
[2021-10-02 08:23] LABS: CREATININE 1.7 mg/dL (0.55-1.3)
[2021-10-02] MEDS: PANTOPRAZOLE 40 MG TABLET PO SCH (11:21)
[2021-10-02] MEDS: ASPIRIN 81 MG CHEWABLE TABLETS PO SCH (11:21)
[2021-10-02] MEDS: DONEPEZIL HCL 5 MG TABLET (FP) PO SCH (11:21)
[2021-10-02] MEDS: NIFEdipine E.R. 30 MG TABLET PO SCH (11:21)
[2021-10-02] MEDS: metoPROLOL SUCCINATE 25 MG TAB.SR.24H (FP) PO SCH ×2 (11:21→21:08)
[2021-10-02] MEDS: LISINOPRIL 20 MG TABLET PO SCH (11:21)
[2021-10-02] MEDS: BUDESONIDE/FORMETEROL FUMARATE 80/4.5 mcg INHALER IH SCH ×2 (11:22→21:08)
[2021-10-02] MEDS: DEXAMETHASONE SOD PHOSPHATE 4 MG/1 ML VIAL IVPUSH SCH (11:52)
[2021-10-02] MEDS: SODIUM CHLORIDE 1,000 ML IV SCH (15:14)
[2021-10-02] MEDS: REMDESIVIR 100 MG in SODIUM CHLORIDE 250 ML IVPB SCH (15:14)
[2021-10-02] MEDS: ATORVASTATIN CA 40 MG TABLET (FP) PO SCH (21:08)
[2021-10-03] MEDS: LEVOTHYROXINE NA 50 MCG TABLET (FP) PO SCH (06:41)
[2021-10-03] MEDS: glipiZIDE 5 MG TABLET (FP) PO SCH (06:41)
[2021-10-03] MEDS: DOCUSATE SODIUM 100 MG CAPSULE (FP) PO SCH ×3 (06:41→21:46)
[2021-10-03] MEDS: metFORMIN HCL 500 MG TABLET (FP) PO SCH ×2 (06:41→16:50)
[2021-10-03 09:09] LABS: BASO % 0.2 % (0-2.0); EOS % 0.1 % (0-4.5); HEMOGLOBIN 11.3 GM/dL (10.7-15.3); LYMPH % 14.7 % (8-40); MCH 24.1 pg (25.7-33.7); MCHC 30.7 g/dl (32.0-36.0); MEAN CELL VOLUME 78.6 fl (80-96); MONO % 5.8 % (3.8-10.2); NEUT % 79.2 % (42.8-82.8); PLATELET COUNT 208 10^3/uL (134-434); RDW 13.1 % (11.6-15.6); WHITE BLOOD COUNT 7.5 K/mm3 (4.0-10.0)
[2021-10-03 09:36] LABS: ALBUMIN 3.1 g/dl (3.4-5.0)
[2021-10-03 09:39] LABS: CREATININE 1.2 mg/dL (0.55-1.3)
[2021-10-03 09:41] LABS: TOT PROT 6.6 g/dl (6.4-8.2)
[2021-10-03] MEDS: metoPROLOL SUCCINATE 25 MG TAB.SR.24H (FP) PO SCH ×2 (09:41→21:47)
[2021-10-03] MEDS: NIFEdipine E.R. 30 MG TABLET PO SCH (09:41)
[2021-10-03] MEDS: LISINOPRIL 20 MG TABLET PO SCH (09:41)
[2021-10-03] MEDS: PANTOPRAZOLE 40 MG TABLET PO SCH (09:41)
[2021-10-03] MEDS: DONEPEZIL HCL 5 MG TABLET (FP) PO SCH (09:41)
[2021-10-03] MEDS: ASPIRIN 81 MG CHEWABLE TABLETS PO SCH (09:41)
[2021-10-03] MEDS: DEXAMETHASONE SOD PHOSPHATE 4 MG/1 ML VIAL IVPUSH SCH (09:42)
[2021-10-03 09:43] LABS: BILIRUBIN,TOTAL 0.3 mg/dL (0.2-1)
[2021-10-03] MEDS: BUDESONIDE/FORMETEROL FUMARATE 80/4.5 mcg INHALER IH SCH ×2 (09:43→21:47)
[2021-10-03] MEDS: SODIUM CHLORIDE 1,000 ML IV SCH ×2 (13:19→13:25)
[2021-10-03] MEDS: REMDESIVIR 100 MG in SODIUM CHLORIDE 250 ML IVPB SCH (15:22)
[2021-10-03] MEDS: ATORVASTATIN CA 40 MG TABLET (FP) PO SCH (21:47)
[2021-10-04] MEDS: LEVOTHYROXINE NA 50 MCG TABLET (FP) PO SCH (06:08)
[2021-10-04] MEDS: metFORMIN HCL 500 MG TABLET (FP) PO SCH ×2 (06:08→16:36)
[2021-10-04] MEDS: DOCUSATE SODIUM 100 MG CAPSULE (FP) PO SCH ×3 (06:08→21:34)
[2021-10-04] MEDS: glipiZIDE 5 MG TABLET (FP) PO SCH (06:09)
[2021-10-04] MEDS: PANTOPRAZOLE 40 MG TABLET PO SCH (09:03)
[2021-10-04] MEDS: NIFEdipine E.R. 30 MG TABLET PO SCH (09:03)
[2021-10-04] MEDS: DEXAMETHASONE SOD PHOSPHATE 4 MG/1 ML VIAL IVPUSH SCH (09:03)
[2021-10-04] MEDS: DONEPEZIL HCL 5 MG TABLET (FP) PO SCH (09:03)
[2021-10-04] MEDS: LISINOPRIL 20 MG TABLET PO SCH (09:03)
[2021-10-04] MEDS: metoPROLOL SUCCINATE 25 MG TAB.SR.24H (FP) PO SCH ×2 (09:03→21:34)
[2021-10-04] MEDS: ASPIRIN 81 MG CHEWABLE TABLETS PO SCH (09:03)
[2021-10-04] MEDS: BUDESONIDE/FORMETEROL FUMARATE 80/4.5 mcg INHALER IH SCH ×2 (09:04→21:35)
[2021-10-04] MEDS: SODIUM CHLORIDE 1,000 ML IV SCH ×2 (12:16→16:34)
[2021-10-04] MEDS: REMDESIVIR 100 MG in SODIUM CHLORIDE 250 ML IVPB SCH (15:25)
[2021-10-04] MEDS: ATORVASTATIN CA 40 MG TABLET (FP) PO SCH (21:34)
[2021-10-05] MEDS: DOCUSATE SODIUM 100 MG CAPSULE (FP) PO SCH ×4 (05:52→21:42)
[2021-10-05] MEDS: LEVOTHYROXINE NA 50 MCG TABLET (FP) PO SCH (06:19)
[2021-10-05] MEDS: glipiZIDE 5 MG TABLET (FP) PO SCH (06:19)
[2021-10-05] MEDS: metFORMIN HCL 500 MG TABLET (FP) PO SCH ×2 (06:19→16:40)
[2021-10-05 08:04] LABS: BASO % 0.3 % (0-2.0); EOS % 0.1 % (0-4.5); HEMATOCRIT 39.5 % (32.4-45.2); HEMOGLOBIN 12.4 GM/dL (10.7-15.3); LYMPH % 21.1 % (8-40); MCH 24.1 pg (25.7-33.7); MCHC 31.3 g/dl (32.0-36.0); MEAN PLT VOLUME 8.7 fl (7.5-11.1); MONO % 5.9 % (3.8-10.2); NEUT % 72.6 % (42.8-82.8); PLATELET COUNT 221 10^3/uL (134-434); RBC 5.13 M/mm3 (3.60-5.2); RDW 13.1 % (11.6-15.6); WHITE BLOOD COUNT 6.5 K/mm3 (4.0-10.0)
[2021-10-05 08:25] LABS: BLOOD UREA NITROGEN 16.2 mg/dL (7-18)
[2021-10-05 08:28] LABS: CREATININE 0.8 mg/dL (0.55-1.3)
[2021-10-05 08:30] LABS: BILIRUBIN,TOTAL 0.2 mg/dL (0.2-1); TOT PROT 6.5 g/dl (6.4-8.2)
[2021-10-05] MEDS: DEXAMETHASONE SOD PHOSPHATE 4 MG/1 ML VIAL IVPUSH SCH (10:44)
[2021-10-05] MEDS: DONEPEZIL HCL 5 MG TABLET (FP) PO SCH (10:45)
[2021-10-05] MEDS: ASPIRIN 81 MG CHEWABLE TABLETS PO SCH (10:45)
[2021-10-05] MEDS: LISINOPRIL 20 MG TABLET PO SCH (10:45)
[2021-10-05] MEDS: NIFEdipine E.R. 30 MG TABLET PO SCH (10:45)
[2021-10-05] MEDS: PANTOPRAZOLE 40 MG TABLET PO SCH (10:45)
[2021-10-05] MEDS: metoPROLOL SUCCINATE 25 MG TAB.SR.24H (FP) PO SCH ×2 (10:45→21:43)
[2021-10-05] MEDS: BUDESONIDE/FORMETEROL FUMARATE 80/4.5 mcg INHALER IH SCH ×2 (10:46→21:43)
[2021-10-05] MEDS: REMDESIVIR 100 MG in SODIUM CHLORIDE 250 ML IVPB SCH (14:45)
[2021-10-05] MEDS: SODIUM CHLORIDE 1,000 ML IV SCH (14:46)
[2021-10-05] MEDS: ATORVASTATIN CA 40 MG TABLET (FP) PO SCH (21:43)
[2021-10-06] MEDS: metFORMIN HCL 500 MG TABLET (FP) PO SCH ×2 (06:33→16:27)
[2021-10-06] MEDS: DOCUSATE SODIUM 100 MG CAPSULE (FP) PO SCH ×3 (06:33→22:52)
[2021-10-06] MEDS: LEVOTHYROXINE NA 50 MCG TABLET (FP) PO SCH (06:34)
[2021-10-06] MEDS: glipiZIDE 5 MG TABLET (FP) PO SCH (06:34)
[2021-10-06] MEDS: SODIUM CHLORIDE 1,000 ML IV SCH ×2 (07:03→13:18)
[2021-10-06] MEDS: DEXAMETHASONE SOD PHOSPHATE 4 MG/1 ML VIAL IVPUSH SCH (09:07)
[2021-10-06] MEDS: LISINOPRIL 20 MG TABLET PO SCH (09:08)
[2021-10-06] MEDS: metoPROLOL SUCCINATE 25 MG TAB.SR.24H (FP) PO SCH ×2 (09:08→22:52)
[2021-10-06] MEDS: PANTOPRAZOLE 40 MG TABLET PO SCH (09:08)
[2021-10-06] MEDS: DONEPEZIL HCL 5 MG TABLET (FP) PO SCH (09:08)
[2021-10-06] MEDS: ASPIRIN 81 MG CHEWABLE TABLETS PO SCH (09:08)
[2021-10-06] MEDS: NIFEdipine E.R. 30 MG TABLET PO SCH (09:08)
[2021-10-06] MEDS: BUDESONIDE/FORMETEROL FUMARATE 80/4.5 mcg INHALER IH SCH ×2 (09:08→22:52)
[2021-10-06] MEDS: ATORVASTATIN CA 40 MG TABLET (FP) PO SCH (22:52)
[2021-10-07] MEDS: DOCUSATE SODIUM 100 MG CAPSULE (FP) PO SCH (05:26)
[2021-10-07] MEDS: glipiZIDE 5 MG TABLET (FP) PO SCH (06:38)
[2021-10-07] MEDS: LEVOTHYROXINE NA 50 MCG TABLET (FP) PO SCH (06:38)
[2021-10-07] MEDS: metFORMIN HCL 500 MG TABLET (FP) PO SCH (06:38)
[2021-10-07 09:18] VITALS: BP 150/66; PULSE 56; TEMP 97.9
[2021-10-07] MEDS: LISINOPRIL 20 MG TABLET PO SCH (09:25)
[2021-10-07] MEDS: NIFEdipine E.R. 30 MG TABLET PO SCH (09:25)
[2021-10-07] MEDS: PANTOPRAZOLE 40 MG TABLET PO SCH (09:26)
[2021-10-07] MEDS: metoPROLOL SUCCINATE 25 MG TAB.SR.24H (FP) PO SCH (09:26)
[2021-10-07] MEDS: ASPIRIN 81 MG CHEWABLE TABLETS PO SCH (09:26)
[2021-10-07] MEDS: DONEPEZIL HCL 5 MG TABLET (FP) PO SCH (09:26)
[2021-10-07] MEDS: DEXAMETHASONE SOD PHOSPHATE 4 MG/1 ML VIAL IVPUSH SCH (09:26)
[2021-10-07] MEDS: BUDESONIDE/FORMETEROL FUMARATE 80/4.5 mcg INHALER IH SCH (09:27)
[2021-10-07] MEDS ORDERED: ONDANSETRON *ODT* 4 MG TABLET SL PRN (09:34)
[2021-10-07] MEDS ORDERED: DEXAMETHASONE 6 MG TABLET PO SCH (09:45)
[2021-10-07] MEDS ORDERED: DEXAMETHASONE 2 MG TABLET PO SCH (10:10)
[2021-10-07] MEDS ORDERED: DEXAMETHASONE 4 MG TABLET (FP) PO ONE (10:46)
== END 2021-10-07 14:21 | disposition home health service (06) | DRG 177 ==
LOC: JER 11:11 → JERBED 14:46 → J4S 22:01 → OBSVTOIN 09-30 11:05
PROVIDERS: ADMIT Internal Medicine; ATTEND Internal Medicine
PROC: XW033E5 Introduction of Remdesivir Anti-infective into Peripheral Vein, Percutaneous Approach, New Technology Group 5 (ICD-10-PCS; principal; 2021-10-01)
DX: U07.1 COVID-19 (principal); J12.82 Pneumonia due to coronavirus disease 2019; I24.8 Other forms of acute ischemic heart disease; J84.9 Interstitial pulmonary disease, unspecified; N17.9 Acute kidney failure, unspecified; E03.9 Hypothyroidism, unspecified; E11.9 Type 2 diabetes mellitus without complications; I10 Essential (primary) hypertension; F03.90 Unspecified dementia, unspecified severity, without behavioral disturbance, psychotic disturbance, mood disturbance, and anxiety; E66.9 Obesity, unspecified; Z68.31 Body mass index [BMI] 31.0-31.9, adult; I45.10 Unspecified right bundle-branch block; I16.0 Hypertensive urgency; R55 Syncope and collapse; Z86.73 Personal history of transient ischemic attack (TIA), and cerebral infarction without residual deficits; K76.0 Fatty (change of) liver, not elsewhere classified; R09.02 Hypoxemia
CPT/HCPCS: 36415; 70450-TC; 71045-TC-FY; 80048; 80053; 80061; 81003; 82607; 82728; 82746; 82962; 83036; 83615; 83735; 84100; 84439; 84443; 84484; 85025; 85379; 85610; 85730; 86140; 87040; 87086; 87324; 87449; 87804; 93005; 93010; 94761; 97116-GP; 97161-GP; 99285-25; C9399; C9803; G0378; U0003; U0005